=== PATIENT | male | born 1945 | race Caucasian/White ===

== ENCOUNTER 2023-03-12 12:39 | Emergency (ER) | payer MEDICARE ==
--- NOTE | 2023-03-12 13:00 | ED ---
General Adult HPI - General Source: patient, family, RN notes reviewed Mode of arrival: ambulatory Limitations: no limitations <Mark Stevens - Last Filed: 03/12/23 12:59> <Nicko Munroe - Last Filed: 03/12/23 14:24> - General Stated complaint: left lower leg pain Time Seen by Provider: 03/12/23 12:59 - History of Present Illness Initial comments: 77-year-old male presents emergency Department from outpatient ultrasound for positive DVT. Patient has a history of DVTs patient has pain to left leg pain over the last few days. Ultrasound showing mid femoral to popliteal DVT. Patient denies chest pain or shortness of breath patient was sent over by radiation oncologist. (Mark Stevens) This is a 77-year-old male who presents emergency department stating that recently he has been treated for esophageal cancer and he has been noting that his left leg is getting swollen he told his oncologist today and they sent him in for an ultrasound which turned out to be positive for DVT. He was sent immediately to the emergency department patient denies any shortness of breath or chest pain. Patient states she's had a clot in the other leg in the past but is no longer in any thinners. (Nicko Munroe) - Related Data Previous Rx's Medication Instructions Recorded Enoxaparin [Lovenox] 100 mg SQ Q12H 30 Days each 03/12/23 Allergies Allergy/AdvReac Type Severity Reaction Status Date / Time No Known Allergies Allergy Verified 03/12/23 13:01 Review of Systems ROS Other: All systems not noted in ROS Statement are negative. <Mark Stevens - Last Filed: 03/12/23 12:59> ROS Other: All systems not noted in ROS Statement are negative. <Nicko Munroe - Last Filed: 03/12/23 14:24> ROS Statement: Those systems with pertinent positive or pertinent negative responses have been documented in the HPI. General Exam General appearance: alert, in no apparent distress <Mark Stevens - Last Filed: 03/12/23 12:59> <Nicko Munroe - Last Filed: 03/12/23 14:24> - General Exam Comments Initial Comments: Visual Physical Exam Vital signs reviewed General: Well-appearing, nontoxic, no acute distress. Head: Normocephalic, atraumatic Eyes: PERRLA, EOMI ENT: Airway patent Chest: Nonlabored breathing Skin: No visual rash, normal skin tone Neuro: Alert and oriented 3 Musculoskeletal: No gross abnormalities (Mark Stevens) GENERAL: Patient is well-developed and well-nourished. Patient is nontoxic and well- hydrated and is in no acute distress. ENT: Neck is soft and supple. No significant lymphadenopathy is noted. Oropharynx is clear. Moist mucous membranes. Neck has full range of motion without eliciting any pain. EYES: The sclera were anicteric and conjunctiva were pink and moist. Extraocular movements were intact and pupils were equal round and reactive to light. Eyelids were unremarkable. SKIN: Skin is clear with no lesions or rashes and otherwise unremarkable. NEUROLOGIC: Patient is alert and oriented x3. Cranial nerves II through XII are grossly intact. Motor and sensory are also intact. Normal speech, volume and content. Symmetrical smile. MUSCULOSKELETAL: Normal extremities with adequate strength and full range of motion. Left leg is swollen and Somewhat tender LYMPHATICS: No significant lymphadenopathy is noted PSYCHIATRIC: Normal psychiatric evaluation. (Nicko Munroe) Course Vital Signs 03/12/23 12:55 Temperature 97 F L Pulse Rate 90 Respiratory 18 Rate Blood Pressure 122/72 O2 Sat by Pulse 92 L Oximetry Medical Decision Making <Mark Stevens - Last Filed: 03/12/23 12:59> <Nicko Munroe - Last Filed: 03/12/23 14:24> - Medical Decision Making I completed the quick note portion of this chart signed Mark Stevens PA-C (Mark Stevens) Was pt. sent in by a medical professional or institution ([facility], [employer] TRA[employer]ER, urgent care, hospital, or usp...) When possible be specific @ -Patient was sent in by his oncologist Did you speak to anyone other than the patient for history (EMS, parent, family, police, friend...)? What history was obtained from this source @ -No Did you review nursing and triage notes (agree or disagree)? Why? @ -I reviewed and agree with nursing and triage notes Were old charts reviewed (outside hosp., previous admission, EMS record, old EKG, old radiological studies, urgent care reports/EKG's, usp records)? Report findings @ -No old charts were reviewed Differential Diagnosis (chest pain, altered mental status, abdominal pain women, abdominal pain men, vaginal bleeding, weakness, fever, dyspnea, syncope, headache, dizziness, GI bleed, back pain, seizure, CVA, palpatations, mental health, musculoskeletal)? @ -DVT EKG interpreted by me (3pts min.). @ -As above X-rays interpreted by me (1pt min.). @ -None done CT interpreted by me (1pt min.). @ -None done U/S interpreted by me (1pt. min.). @ -None done What testing was considered but not performed or refused? (CT, X-rays, U/S, labs)? Why? @ -None What meds were considered but not given or refused? Why? @ -None Did you discuss the management of the patient with other professionals (professionals i.e. , PA, SALESFORCE TRAINER, lab, RT, psych nurse, long term care social worker, television cameraman, teacher, security officer, pillowcase turner)? Give summary @ -I spoke with the oncologist and he was okay with giving the patient eliquis through the J-[facility] Was smoking cessation discussed for >3mins.? @ -No Was critical care preformed (if so, how long)? @ -No Were there social determinants of health that impacted care today? How? (Homelessness, low income, unemployed, alcoholism, drug addiction, transportation, low edu. Level, literacy, decrease access to med. care, fdc, rehab)? @ -No Was there de-escalation of care discussed even if they declined (Discuss DNR or withdrawal of care, Hospice)? DNR status @ -No What co-morbidities impacted this encounter? (DM, HTN, Smoking, COPD, CAD, Cancer, CVA, ARF, Chemo, Hep., AIDS, mental health diagnosis, sleep apnea, morbid obesity)? @ -None Was patient admitted / discharged? Hospital course, mention meds given and route, prescriptions, significant lab abnormalities, going to OR and other pertinent info. @ -Patient was given a first dose of eliquis in the emergency department. After I spoke with oncology and they agreed that eliquis some right medication to be given to the J-tube a call back and subsequently wanted Lovenox subcu 1 mg/kg. Undiagnosed new problem with uncertain prognosis? @ -No Drug Therapy requiring intensive monitoring for toxicity (Heparin, Nitro, Insulin, Cardizem)? @ -No Were any procedures done? @ -No Diagnosis/symptom? @ -DVT left leg Acute, or Chronic, or Acute on Chronic? @ -Acute Uncomplicated (without systemic symptoms) or Complicated (systemic symptoms)? @ -Complicated Side effects of treatment? @ -No Exacerbation, Progression, or Severe Exacerbation? @ -No Poses a threat to life or bodily function? How? (Chest pain, [place], [place], pneumonia, PE, COPD, DKA, ARF, appy, cholecystitis, CVA, Diverticulitis, Homicidal, Suicidal, threat to staff... and all critical care pts) @ -yes this could lead to pulmonary embolism and (Nicko Munroe) Disposition <Mark Stevens - Last Filed: 03/12/23 12:59> Is patient prescribed a controlled substance at d/c from ED?: No Time of Disposition: 13:53 <Nicko Munroe - Last Filed: 03/12/23 14:24> Clinical Impression: DVT (deep venous thrombosis) Disposition: HOME SELF-CARE Condition: Good Instructions (If sedation given, give patient instructions): Deep Vein Thrombosis (ED), Enoxaparin (By injection) Prescriptions: Enoxaparin [Lovenox] 100 mg SQ Q12H 30 Days each Referrals: Nicko Aguillon DO [Primary Care Provider] - 1-2 days
[2023-03-12 13:07] VITALS: BP 122/72; PULSE 90; RESP 18; TEMP 97
[2023-03-12] MEDS ORDERED: ENOXAPARIN 100 MG/ML SYRINGE SQ STA (14:14)
== END 2023-03-12 14:30 | disposition home or self-care (01) ==
LOC: EC 12:39
DX: I82.402 Acute embolism and thrombosis of unspecified deep veins of left lower extremity (principal)
CPT/HCPCS: 99282 ×2; 96372 ×2; J1650

== ENCOUNTER → 2023-03-12 | Outpatient (CLI) | payer MEDICARE ==
--- NOTE | 2023-03-12 12:46 | US ---
EXAMINATION TYPE: US venous doppler duplex LE LT DATE OF EXAM: 03/12/2023 12:21 PM COMPARISON: NONE CLINICAL INDICATION: Male, 77 years old with history of M79.662 PAIN IN LEFT LOWER LEG; Per patient, hx DVT in right leg x >10 years ago. Not on blood thinners. Pain. Current cancer patient with curr ent radiation and chemotherapy treatments. SIDE PERFORMED: Left TECHNIQUE: The lower extremity deep venous system is examined utilizing real time linear array sonog daniel with graded compression, doppler sonography and color-flow sonography. VESSELS IMAGED: Common Femoral Vein Deep Femoral Vein Greater Saphenous Vein * Femoral Vein Popliteal Vein Small Saphenous Vein * Proximal Calf Veins (* superficial vessels) Left Leg: Positive for DVT from mid Femoral vein to proximal calf veins. Positive for clot in PTV's . Incidental finding: Right CFV- Positive for DVT IMPRESSION: 1. Deep venous thrombosis left lower extremity of the calf veins to the mid femoral vein 2. Incidental note made of DVT within the right common femoral vein. Consider complete evaluation of the right lower extremity venous system for further evaluation of the extent of the deep venous throm bosis.
== END | disposition home or self-care (01) ==
LOC: RADUSWWP 11:54
PROVIDERS: ATTEND Radiology Radiation Oncology
DX: I82.492 Acute embolism and thrombosis of other specified deep vein of left lower extremity (principal); C77.1 Secondary and unspecified malignant neoplasm of intrathoracic lymph nodes; C15.5 Malignant neoplasm of lower third of esophagus; R22.42 Localized swelling, mass and lump, left lower limb

== ENCOUNTER → 2023-06-14 | Outpatient (CLI) | payer MEDICARE, OTHER ==
--- NOTE | 2023-06-15 15:51 | CA ---
Transthoracic Echo Report Name: Rajiv Hong Age: 77 Gender: M : 1945 Exam Date: 06/14/2023 15:03 Exam Location: [facility] Ht (in): 68 Wt (lb): 230 Ordering Physician: Marc Villegas MD Attending/Referring Phys: Power Plant Operator Apprentice Nell Vaz RDCS Procedure CPT: Indications: Z01.818 Chemo Cardiac Hx: IVSs 1.1 Technical Quality: Contrast 1: Total Dose (mL): Contrast 2: Total Dose (mL): MEASUREMENTS (Male / Female) Normal Values FINDINGS Left Ventricle Left ventricular ejection fraction is estimated at 50-55%. Left ventricular cavity size normal. No obvious regional wall motion abnormalities. Right Ventricle Normal right ventricular size.unable to estimate the right ventricular systolic pressure. Right Atrium Normal right atrial size. Left Atrium Normal left atrial size. Mitral Valve Trace to mild mitral regurgitation. Aortic Valve Mild aortic regurgitation. [id number] aortic stenosis with a peak gradient of 37 mmHg and a mean gradient of 17.3 mmHg. Tricuspid Valve Trace to mild tricuspid regurgitation. Pulmonic Valve Trace to mild pulmonic regurgitation. Pericardium No pericardial effusion. Aorta Normal size aortic root. CONCLUSIONS Normal LV systolic function Aortic sclerosis with [id number] aortic stenosis Previewed by: Dr. Frank Jeffers MD (Electronically Signed) Final Date: 15 June 2023 15:50
== END | disposition home or self-care (01) ==
LOC: RADECHMAIN 14:54
PROVIDERS: ATTEND Internal Medicine Hematology & Oncology
DX: Z01.818 Encounter for other preprocedural examination (principal); I35.0 Nonrheumatic aortic (valve) stenosis; I35.8 Other nonrheumatic aortic valve disorders; C15.5 Malignant neoplasm of lower third of esophagus; E78.5 Hyperlipidemia, unspecified; I10 Essential (primary) hypertension; Z71.3 Dietary counseling and surveillance
CPT/HCPCS: 93306

== ENCOUNTER → 2023-09-22 | Outpatient (CLI) | payer MEDICARE, OTHER ==
--- NOTE | 2023-09-22 17:50 | PE ---
EXAMINATION TYPE: PET CT fusion skull to thigh DATE OF EXAM: 09/22/2023 COMPARISON: No recent pertinent CT at this location Prior PET/CT: 06/13/2023 HISTORY: History of cancer TECHNIQUE: Following the intravenous administration of 11.75 mCi of F-18 FDG, whole body images are performed from the skull base to the midthigh. Images are reviewed on the computer in the coronal, a xial, and sagittal planes. Reconstructed rotating images are created on independent workstation and reviewed on the computer. A localization and attenuation correction CT is performed in conjunction with the PET scan. DLP: 916.02 mGycm SCAN: Subsequent Blood glucose: 95 mg/dL Average Mediastinum SUV: 2.03 Average Liver SUV: 2.78 FINDINGS: NECK: No abnormal uptake THORAX: There is increased uptake within the posterior distal esophagus above the gastroesophageal ju nction, example image 117, SUV 8.76. ABDOMEN: No abnormal uptake PELVIS: No abnormal uptake within the intraperitoneal region. There is some superficial increased upt nicki scattered within the subcutaneous tissues anteriorly right greater than left infection and metast asis should be considered. Example image 216, SUV 8.69 OSSEOUS STRUCTURES: No abnormal uptake LOCALIZATION CT: Small bilateral pleural effusions are present. There may be a small hiatal hernia pr esent. Suspicious uptake within the hiatal hernia however is not evident. COMPARISON: Uptake remains present within the esophagus from the prior examination. No significant in crease or decrease in SUV value from comparison, prior 8.39. Volume however appears somewhat larger o n the current examination. IMPRESSION: 1. Increasing volume of radiotracer within the distal esophagus above a hiatal hernia. SUV is similar . Recurrence however is suspected. Direct visualization recommended. 2. Distant abnormal uptake to suggest metastasis not identified. 3. Subcutaneous anterior lower pelvic uptake increasing from comparison. Correlate for underlying inf ection. Metastasis is not excluded.
== END | disposition home or self-care (01) ==
LOC: RADPETMAIN 09:50
PROVIDERS: ATTEND Radiology Radiation Oncology
DX: C77.1 Secondary and unspecified malignant neoplasm of intrathoracic lymph nodes (principal); C16.0 Malignant neoplasm of cardia; K44.9 Diaphragmatic hernia without obstruction or gangrene
CPT/HCPCS: 78815; A9552

== ENCOUNTER 2023-10-16 10:18 | Day surgery (SDC) | payer MEDICARE, OTHER ==
[2023-10-15 10:03] VITALS: BMI 34.9
[2023-10-16 10:33] VITALS: TEMP 97.6
[2023-10-16] MEDS: IV FLUID CONTINUATION 1,000 ML IV ONE (10:35)
[2023-10-16] MEDS: LACTATED RINGERS 1,000 ML BAG IV STA (10:43)
[2023-10-16] MEDS ORDERED: PROPOFOL 10 MG/ML 20 ML VIAL IV ONE (11:21)
[2023-10-16] MEDS ORDERED: LIDOCAINE 1% INJ 10MG/ML (20 ML MDV) ONE (11:21)
[2023-10-16 11:40] VITALS: BP 136/72; PULSE 77; RESP 16
--- NOTE | 2023-10-16 12:12 | P.PCN ---
Date of Procedure: 10/16/23 Procedure(s) Performed: BRIEF HISTORY: Patient is a 77-year-old, pleasant, white male scheduled for an upper endoscopy as a part of follow-up of esophageal cancer diagnosed in January 2023. He s/p chemo and radiation and recent PET scan done 3 weeks ago revealed increased uptake in the distal esophagus suspicious for recurrence. He has been complaining of intermittent dysphagia to solid. PROCEDURE PERFORMED: Esophagogastroduodenoscopy with biopsy. PREOPERATIVE DIAGNOSIS: Follow-up esophageal cancer diagnosed in January 2023. IV sedation per anesthesia. PROCEDURE: After informed consent was obtained, the patient was brought into the endoscopy unit. IV sedation was administered by Anesthesia under continuous monitoring. Initially the Olympus GIF-140 video endoscope was inserted into the mouth. Esophagus intubated without any difficulty. It was gradually advanced into the distal esophagus where there was a distal esophageal ulcerated necrotic appearing mass identified extending from the 7 to 40 cm from the incisors. I was unable to advance the scope as it was old esophageal stricture identified at the GE junction. The scope was removed and a pediatric upper endoscope was then introduced into the mouth and esophagus intubated without any difficulty and gentle manipulation I was able to advance the scope into the stomach and duodenum and carefully examined. The bulb and the second part of the duodenum appeared normal. The scope at this time was withdrawn to the stomach, adequately insufflated with air, and upon careful examination, mucosa of the antrum, body, cardia and the fundus appeared normal. The scope was then withdrawn into the esophagus. Hiatal hernia noted. The GE junction was located at 40 cm from the incisors. There was a distal esophageal ulcerated necrotic appearing mass extending from 37 to 40 cm from the incisors and multiple biopsies were done from this area. The rest of the esophagus appeared normal. the patient tolerated the procedure well. IMPRESSION: 1. Distal esophageal ulcerated necrotic appearing mass extending from 37 to 40 cm from the incisors s/p multiple biopsies. 2. Early distal esophageal stricture 3. Small hiatal. RECOMMENDATIONS: The findings of this examination were discussed with the patient as well as his family. He was advised to follow-up with the biopsy results. Follow-up with Dr. Villegas as scheduled.
== END 2023-10-16 12:10 | disposition home or self-care (01) ==
LOC: ORWHC2ENDO 10:18
PROVIDERS: ATTEND Internal Medicine Gastroenterology
DX: D00.1 Carcinoma in situ of esophagus (principal); K22.89 Other specified disease of esophagus; K22.2 Esophageal obstruction; Z85.01 Personal history of malignant neoplasm of esophagus; Z92.21 Personal history of antineoplastic chemotherapy
CPT/HCPCS: 88305; 88342; 88341; 43239; J2001; J2704

== ENCOUNTER 2023-10-24 11:49 | Inpatient (IN) | payer MEDICARE, OTHER ==
--- NOTE | 2023-10-24 12:34 | ED ---
Weakness HPI - General Chief complaint: Weakness Stated complaint: Weakness Time Seen by Provider: 10/24/23 12:27 Source: patient, EMS Mode of arrival: EMS Limitations: physical limitation - History of Present Illness Initial comments: This patient is a 77-year-old man here to have evaluation for generalized weakness and confusion that has been going on for approximately 2 days, getting progressively worse. History is from the patient and his . The patient is currently taking radiation therapy for esophageal cancer. They have not noted fever. No cough or dyspnea. There has been no change in urination or bowel movements. The weakness is not focal. MD Complaint: generalized weakness, lack of energy, difficulty walking Onset/Timin -: days(s) Location: generalized Severity: moderate Severity scale (1-10): 0 Consistency: constant Improves with: none Worsens with: none Context: other (radiation therapy) Associated Symptoms: confusion - Related Data Home Medications Medication Instructions Recorded Confirmed Albuterol Sulfate [Ventolin HFA] 2 puff INHALATION RT-QID PRN 07/01/23 10/24/23 Ezetimibe [Zetia] 10 mg PO DAILY 07/01/23 10/24/23 Fluticasone Propion/Salmeterol 1 puff INHALATION RT-DAILY 07/01/23 10/24/23 [Wixela 100-50 Inhub] Omeprazole 20 mg PO DAILY 07/01/23 10/24/23 Valsartan/Hydrochlorothiazide 1 tab PO DAILY 07/01/23 10/24/23 [Valsartan-Hctz 160-12.5 mg Tab] amLODIPine [Norvasc] 5 mg PO DAILY 07/01/23 10/24/23 Previous Rx's Medication Instructions Recorded dexAMETHasone [Decadron] 4 mg PO Q6HR 7 Days #28 tablet 10/26/23 Allergies Allergy/AdvReac Type Severity Reaction Status Date / Time No Known Allergies Allergy Verified 10/24/23 13:57 Review of Systems ROS Statement: Those systems with pertinent positive or pertinent negative responses have been documented in the HPI. ROS Other: All systems not noted in ROS Statement are negative. Constitutional: Reports: weakness. Denies: fever, chills Eyes: Denies: vision change ENT: Denies: throat pain Respiratory: Denies: cough, dyspnea, hemoptysis Cardiovascular: Denies: chest pain, edema, syncope Gastrointestinal: Denies: abdominal pain, nausea, vomiting, diarrhea Genitourinary: Denies: dysuria, hematuria Musculoskeletal: Denies: back pain Skin: Denies: rash Neurological: Denies: headache, weakness, numbness Past Medical History Past Medical History: Asthma, Cancer, Deep Vein Thrombosis (DVT), GERD/Reflux, Hyperlipidemia, Hypertension Additional Past Medical History / Comment(s): esophageal Ca, CHEMO LAST treatment 10/15/23 every 4-6 weeks, radiation finished History of Any Multi-Drug Resistant Organisms: None Reported Past Surgical History: Hernia Repair, Joint Replacement, Orthopedic Surgery Additional Past Surgical History / Comment(s): partial knee replacement egd, feeding tube -REMOVED Past Anesthesia/Blood Transfusion Reactions: No Reported Reaction Additional Past Anesthesia/Blood Transfusion Reaction / Comment(s): no blood transfusion Past Psychological History: No Psychological Hx Reported Smoking Status: Former smoker Past Alcohol Use History: None Reported Past Drug Use History: None Reported - Past Family History Mother Family Medical History: No Reported History General Exam Limitations: physical limitation General appearance: alert, in no apparent distress Head exam: Present: atraumatic, normocephalic Eye exam: Present: normal appearance. Absent: scleral icterus, conjunctival injection ENT exam: Present: mucous membranes dry Neck exam: Present: normal inspection, full ROM. Absent: meningismus Respiratory exam: Present: rales. Absent: respiratory distress, wheezes, rhonchi, stridor, accessory muscle use Cardiovascular Exam: Present: regular rate, normal rhythm, systolic murmur. Absent: diastolic murmur, rubs, gallop GI/Abdominal exam: Present: soft. Absent: distended, tenderness, guarding, rebound, rigid, mass Extremities exam: Present: normal inspection, normal capillary refill. Absent: pedal edema, calf tenderness Back exam: Present: normal inspection. Absent: CVA tenderness (R), CVA tenderness (L) Neurological exam: Present: alert Skin exam: Present: warm, dry, intact, normal color. Absent: rash Course Vital Signs 10/24/23 10/24/23 10/24/23 11:53 13:23 14:25 Temperature 99.8 F H Pulse Rate 85 80 81 Respiratory 16 18 18 Rate Blood Pressure 158/72 173/84 172/84 O2 Sat by Pulse 97 95 96 Oximetry 10/24/23 10/24/2324 17:25 18:48 19:55 Temperature Pulse Rate 86 80 83 Respiratory 18 18 18 Rate Blood Pressure 172/80 155/78 164/80 O2 Sat by Pulse 95 95 95 Oximetry EKG Findings - EKG Results: EKG: interpreted by ERMD, sinus rhythm (86 bpm) - Blocks, [place], Hypertrophy, ST Abn: AV and intraventricular conduction: 1 AV block, right bundle branch block (fixed/intermittent, complete/incomplete) (incomplete), left anterior fascicular block Medical Decision Making - Medical Decision Making The patient had chest x-ray which I interpreted as showing some mild diffuse haziness, consider atypical pneumonia versus congestive heart failure. Procalcitonin is added to the labs. The patient had CT of the brain that I interpreted that showed suspected brain metastases with edema. Was pt. sent in by a medical professional or institution (, PA, CYLINDER DIE MACHINE OPERATOR, urgent care, hospital, or fdc...) When possible be specific @ -[No] Did you speak to anyone other than the patient for history (EMS, parent, family, police, friend...)? What history was obtained from this source @ -[The patient's contributed to history Did you review nursing and triage notes (agree or disagree)? Why? @ -[I reviewed and agree with nursing and triage notes] Were old charts reviewed (outside hosp., previous admission, EMS record, old EKG, old radiological studies, urgent care reports/EKG's, fdc records)? Report findings @ -[No old charts were reviewed] Differential Diagnosis (chest pain, altered mental status, abdominal pain women, abdominal pain men, vaginal bleeding, weakness, fever, dyspnea, syncope, headache, dizziness, GI bleed, back pain, seizure, CVA, palpatations, mental health, musculoskeletal)? @ -[Differential Weakness: Hypoglycemia, shock, sepsis, hyponatremia, anemia, infection, NE, ETOH, adverse medicine reaction, overdose, stroke, this is not meant to be an all-inclusive list. EKG interpreted by me (3pts min.). @ -[I interpreted as above] X-rays interpreted by me (1pt min.). @ -[I interpreted as above CT interpreted by me (1pt min.). @ -[I interpreted as above U/S interpreted by me (1pt. min.). @ -[None done] What testing was considered but not performed or refused? (CT, X-rays, U/S, labs)? Why? @ -[None] What meds were considered but not given or refused? Why? @ -[None] Did you discuss the management of the patient with other professionals (professionals i.e. , PA, CYLINDER DIE MACHINE OPERATOR, lab, RT, psych nurse, social security specialist, dope maintenance worker, teacher, coastal/harbor defense officer, family service caseworker)? Give summary @ -[Case discussed with admitting physician and treatment recommendations incorporated Was smoking cessation discussed for >3mins.? @ -[No] Was critical care preformed (if so, how long)? @ -[No] Were there social determinants of health that impacted care today? How? (Homelessness, low income, unemployed, alcoholism, drug addiction, transportation, low edu. Level, literacy, decrease access to med. care, long term, rehab)? @ -[No] Was there de-escalation of care discussed even if they declined (Discuss DNR or withdrawal of care, Hospice)? DNR status @ -[No] What co-morbidities impacted this encounter? (DM, HTN, Smoking, COPD, CAD, Cancer, CVA, ARF, Chemo, Hep., AIDS, mental health diagnosis, sleep apnea, morbid obesity)? @ -[Underlying cancer Was patient admitted / discharged? Hospital course, mention meds given and route, prescriptions, significant lab abnormalities, going to OR and other pe rtinent info. @ -[Patient is a 77-year-old man here with generalized weakness. As part of the workup, the patient had CT scan that shows suspected brain metastases. There is some edema and the patient was started on dexamethasone. Patient will be admitted and have oncology consultation. Undiagnosed new problem with uncertain prognosis? @ -[No] Drug Therapy requiring intensive monitoring for toxicity (Heparin, Nitro, Insulin, Cardizem)? @ -[No] Were any procedures done? @ -[No] Diagnosis/symptom? @ -Acute generalized weakness Suspected brain metastases Acute, or Chronic, or Acute on Chronic? @ -[Acute Uncomplicated (without systemic symptoms) or Complicated (systemic symptoms)? @ -[Complicated by generalized weakness Side effects of treatment? @ -[No] Exacerbation, Progression, or Severe Exacerbation? @ -[No] Poses a threat to life or bodily function? How? (Chest pain, USA, NE, pneumonia, PE, COPD, DKA, ARF, appy, cholecystitis, CVA, Diverticulitis, Homicidal, Suicidal, threat to staff... and all critical care pts) @ -[Yes - Lab Data Result diagrams: 10/26/23 05:01 10/26/23 05:01 Lab Results 10/24/23 10/24/23 10/24/23 Range/Units 12:53 12:53 12:53 WBC 8.7 (3.8-10.6) k/uL RBC 4.10 L (4.30-5.90) m/uL Hgb 11.5 L (13.0-17.5) gm/dL Hct 35.6 L (39.0-53.0) % MCV 86.9 (80.0-100.0) fL MCH 28.1 (25.0-35.0) pg MCHC 32.4 (31.0-37.0) g/dL RDW 14.3 (11.5-15.5) % Plt Count 251 (150-450) k/uL MPV 7.4 Neutrophils % 82 % Lymphocytes % 8 % Monocytes % 7 % Eosinophils % 1 % Basophils % 1 % Neutrophils # 7.1 (1.3-7.7) k/uL Lymphocytes # 0.7 L (1.0-4.8) k/uL Monocytes # 0.6 (0-1.0) k/uL Eosinophils # 0.1 (0-0.7) k/uL Basophils # 0.1 (0-0.2) k/uL PT 10.9 (10.0-12.5) sec INR 1.0 (<1.2) APTT 25.4 (22.0-30.0) sec Sodium 131 L (137-145) mmol/L Potassium 4.3 (3.5-5.1) mmol/L Chloride 100 (98-107) mmol/L Carbon Dioxide 25 (22-30) mmol/L Anion Gap 6 mmol/L BUN 28 H (9-20) mg/dL Creatinine 0.66 (0.66-1.25) mg/dL Est GFR (CKD-EPI)AfAm >90 (>60 ml/min/1.73 sqM) Est GFR (CKD-EPI)NonAf >90 (>60 ml/min/1.73 sqM) Glucose 103 H (74-99) mg/dL Plasma Lactic Acid Cabrera (0.7-2.0) mmol/L Calcium 8.7 (8.4-10.2) mg/dL Total Bilirubin 2.2 H (0.2-1.3) mg/dL AST 25 (17-59) U/L ALT 18 (4-49) U/L Alkaline Phosphatase 91 (38-126) U/L Troponin I (0.000-0.034) ng/mL Total Protein 6.9 (6.3-8.2) g/dL Albumin 3.8 (3.5-5.0) g/dL Procalcitonin (0.02-0.09) ng/mL Urine Color Urine Appearance (Clear) Urine pH (5.0-8.0) Ur Specific [place] (1.001-1.035) Urine Protein (Negative) Urine Glucose (UA) (Negative) Urine Ketones (Negative) Urine Blood (Negative) Urine Nitrite (Negative) Urine Bilirubin (Negative) Urine Urobilinogen (<2.0) mg/dL Ur Leukocyte Esterase (Negative) 10/24/23 10/24/23 10/24/23 Range/Units 12:53 12:53 12:53 WBC (3.8-10.6) k/uL RBC (4.30-5.90) m/uL Hgb (13.0-17.5) gm/dL Hct (39.0-53.0) % MCV (80.0-100.0) fL MCH (25.0-35.0) pg MCHC (31.0-37.0) g/dL RDW (11.5-15.5) % Plt Count (150-450) k/uL MPV Neutrophils % % Lymphocytes % % Monocytes % % Eosinophils % % Basophils % % Neutrophils # (1.3-7.7) k/uL Lymphocytes # (1.0-4.8) k/uL Monocytes # (0-1.0) k/uL Eosinophils # (0-0.7) k/uL Basophils # (0-0.2) k/uL PT (10.0-12.5) sec INR (<1.2) APTT (22.0-30.0) sec Sodium (137-145) mmol/L Potassium (3.5-5.1) mmol/L Chloride (98-107) mmol/L Carbon Dioxide (22-30) mmol/L Anion Gap mmol/L BUN (9-20) mg/dL Creatinine (0.66-1.25) mg/dL Est GFR (CKD-EPI)AfAm (>60 ml/min/1.73 sqM) Est GFR (CKD-EPI)NonAf (>60 ml/min/1.73 sqM) Glucose (74-99) mg/dL Plasma Lactic Acid [place] 0.8 (0.7-2.0) mmol/L Calcium (8.4-10.2) mg/dL Total Bilirubin (0.2-1.3) mg/dL AST (17-59) U/L ALT (4-49) U/L Alkaline Phosphatase (38-126) U/L Troponin I <0.012 (0.000-0.034) ng/mL Total Protein (6.3-8.2) g/dL Albumin (3.5-5.0) g/dL Procalcitonin 0.08 (0.02-0.09) ng/mL Urine Color Urine Appearance (Clear) Urine pH (5.0-8.0) Ur Specific [place] (1.001-1.035) Urine Protein (Negative) Urine Glucose (UA) (Negative) Urine Ketones (Negative) Urine Blood (Negative) Urine Nitrite (Negative) Urine Bilirubin (Negative) Urine Urobilinogen (<2.0) mg/dL Ur Leukocyte Esterase (Negative) 10/24/23 Range/Units 14:06 WBC (3.8-10.6) k/uL RBC (4.30-5.90) m/uL Hgb (13.0-17.5) gm/dL Hct (39.0-53.0) % MCV (80.0-100.0) fL MCH (25.0-35.0) pg MCHC (31.0-37.0) g/dL RDW (11.5-15.5) % Plt Count (150-450) k/uL MPV Neutrophils % % Lymphocytes % % Monocytes % % Eosinophils % % Basophils % % Neutrophils # (1.3-7.7) k/uL Lymphocytes # (1.0-4.8) k/uL Monocytes # (0-1.0) k/uL Eosinophils # (0-0.7) k/uL Basophils # (0-0.2) k/uL PT (10.0-12.5) sec INR (<1.2) APTT (22.0-30.0) sec Sodium (137-145) mmol/L Potassium (3.5-5.1) mmol/L Chloride (98-107) mmol/L Carbon Dioxide (22-30) mmol/L Anion Gap mmol/L BUN (9-20) mg/dL Creatinine (0.66-1.25) mg/dL Est GFR (CKD-EPI)AfAm (>60 ml/min/1.73 sqM) Est GFR (CKD-EPI)NonAf (>60 ml/min/1.73 sqM) Glucose (74-99) mg/dL Plasma Lactic Acid [place] (0.7-2.0) mmol/L Calcium (8.4-10.2) mg/dL Total Bilirubin (0.2-1.3) mg/dL AST (17-59) U/L ALT (4-49) U/L Alkaline Phosphatase (38-126) U/L Troponin I (0.000-0.034) ng/mL Total Protein (6.3-8.2) g/dL Albumin (3.5-5.0) g/dL Procalcitonin (0.02-0.09) ng/mL Urine Color Light Yellow Urine Appearance Clear (Clear) Urine pH 6.5 (5.0-8.0) Ur Specific [place] 1.021 (1.001-1.035) Urine Protein Trace H (Negative) Urine Glucose (UA) Negative (Negative) Urine Ketones 1+ H (Negative) Urine Blood Negative (Negative) Urine Nitrite Negative (Negative) Urine Bilirubin Negative (Negative) Urine Urobilinogen <2.0 (<2.0) mg/dL Ur Leukocyte Esterase Negative (Negative) Disposition Clinical Impression: Metastatic cancer to brain, Weakness Disposition: ADMITTED IP TO THIS [facility] Condition: Good Is patient prescribed a controlled substance at d/c from ED?: No
[2023-10-24 13:12] LABS: Basophils # (A) 0.1 k/uL (0-0.2); Basophils % (A) 1 %; Eosinophils # (A) 0.1 k/uL (0-0.7); Eosinophils % (A) 1 %; HCT 35.6 % (39.0-53.0); HGB 11.5 gm/dL (13.0-17.5); Lymphocytes # (A) 0.7 k/uL (1.0-4.8); Lymphocytes % (A) 8 %; MCH 28.1 pg (25.0-35.0); MCHC 32.4 g/dL (31.0-37.0); MCV 86.9 fL (80.0-100.0); Mean Platelet Volume 7.4; Monocytes # (A) 0.6 k/uL (0-1.0); Monocytes % (A) 7 %; Neutrophils # (A) 7.1 k/uL (1.3-7.7); Neutrophils % (A) 82 %; Platelet Count 251 k/uL (150-450); RDW 14.3 % (11.5-15.5); WBC 8.7 k/uL (3.8-10.6)
[2023-10-24 13:19] LABS: Partial Thromboplastin Time 25.4 sec (22.0-30.0); Prothrombin Time 10.9 sec (10.0-12.5)
[2023-10-24] MEDS: SODIUM CHLORIDE 0.9% 1,000 ML IV SCH ×2 (13:31→17:38)
[2023-10-24 13:32] LABS: ALT 18 U/L (4-49); AST 25 U/L (17-59); African American GFR (CKD) >90 (>60 ml/min/1.73 sqM); Albumin 3.8 g/dL (3.5-5.0); Alkaline Phosphatase 91 U/L (38-126); Anion Gap 6 mmol/L; Blood Urea Nitrogen 28 mg/dL (9-20); Calcium 8.7 mg/dL (8.4-10.2); Carbon Dioxide 25 mmol/L (22-30); Chloride 100 mmol/L (98-107); Glucose 103 mg/dL (74-99); Non-African American GFR(CKD) >90 (>60 ml/min/1.73 sqM); Potassium 4.3 mmol/L (3.5-5.1); Sodium 131 mmol/L (137-145); Total Bilirubin 2.2 mg/dL (0.2-1.3); Total Protein 6.9 g/dL (6.3-8.2)
[2023-10-24] MEDS: SODIUM CHLORIDE 0.9% 500 ML 500 ML IV SCH (13:32)
--- NOTE | 2023-10-24 14:21 | CT ---
EXAMINATION TYPE: CT brain wo con DATE OF EXAM: 10/24/2023 COMPARISON: None HISTORY: 77-year-old male with confusion AMS. HX OF CANCER. TECHNIQUE: Examination was done in axial plane without intravenous contrast. Coronal and sagittal r econstructions performed. CT DLP: 1168.4 mGycm Automated exposure control for dose reduction was used. FINDINGS: Prominent CSF space along the anterior floor of the left middle cranial fossa measuring 4.7 x 2.9 x 2 .8 cm. There is an area of vasogenic edema along the right parietal region and right parieto-occipita l junction with suggestion of a possible underlying rounded lesion measuring 2.3 cm. There is associa caitie sulcal effacement but no midline shift or herniation. There is mass effect resulting in asymmetri c effacement of the atrium of the right lateral ventricle. No evidence for acute intracranial hemorrhage, acute ischemic change, or extra-axial fluid collection . Mild fullness of the bilateral ventricles likely due to central atrophy. No effacement of basal subar achnoid cisterns. [place]-white matter differentiation is maintained. There is moderate patchy white matter hypodensities in both hemispheres. Metastatic calcifications in the bilateral carotid siphons. Scleral banding left globe. Rightward nasal septal deviation. Mild mucosal thickening ethmoid air archana ls. Mastoid air cells well pneumatized. IMPRESSION: 1. Findings highly suggestive of a 2.3 cm parenchymal lesion (metastatic disease) involving the right parietal lobe with surrounding vasogenic edema throughout the parietal lobe and back to the parieto- occipital junction. Mass effect causes effacement of the atrium of the right lateral ventricle. No mi dline shift or herniation. 2. A 4.7 cm arachnoid cyst incidentally noted along the anterior floor of the left middle cranial fos sa.
[2023-10-24 15:00] LABS: Appearance,Urine Clear (Clear); Bilirubin,Urine Negative (Negative); Blood,Urine Negative (Negative); Color,Urine Light Yellow; Glucose,Urine (UA) Negative (Negative); Ketones,Urine 1+ (Negative); Leukocyte Esterase,Urine Negative (Negative); Nitrite,Urine Negative (Negative); PH, Urine 6.5 (5.0-8.0); Protein,Urine Trace (Negative); Specific Gravity,Urine 1.021 (1.001-1.035); Urobilinogen,Urine <2.0 mg/dL (<2.0)
--- NOTE | 2023-10-24 16:02 | XR ---
EXAMINATION TYPE: XR chest 2V DATE OF EXAM: 10/24/2023 COMPARISON: None HISTORY: 77-year-old male with fever, history of esophageal cancer TECHNIQUE: AP and lateral views FINDINGS: The heart is mildly enlarged. Diffuse interstitial density. No sizable pleural effusion or larry cons olidation. IMPRESSION: Mild cardiomegaly and interstitial changes. Consider possibilities such as CHF with pulmonary vascula r congestion versus atypical pneumonias.
[2023-10-24] MEDS ORDERED: NALOXONE 0.4 MG/ML 1 ML VIAL IV PRN (16:52)
[2023-10-24] MEDS ORDERED: MORPHINE SULFATE 4 MG/ML SYRINGE IV PRN (16:52)
[2023-10-24] MEDS ORDERED: ACETAMINOPHEN TAB 325 MG TAB PO PRN (16:52)
[2023-10-24] MEDS ORDERED: ONDANSETRON 4 MG/2 ML VIAL IVP PRN (16:52)
[2023-10-24] MEDS: dexAMETHasone 2 MG TAB PO STA (17:32)
[2023-10-24] MEDS: VALSARTAN 160 MG TAB PO SCH (22:00)
[2023-10-24] MEDS: hydroCHLOROthiazide 12.5 MG CAP PO SCH (22:01)
[2023-10-24] MEDS: FAMOTIDINE 20 MG TAB PO SCH (22:02)
[2023-10-24] MEDS: HEPARIN SODIUM,PORCINE 5,000 UNIT/ML 1 ML VIAL SQ SCH (22:02)
[2023-10-24] MEDS: amLODIPine 5 MG TAB PO SCH (22:20)
[2023-10-24] MEDS: PANTOPRAZOLE 40 MG TABLET PO SCH (22:20)
[2023-10-24] MEDS: EZETIMIBE 10 MG TAB PO SCH (22:20)
[2023-10-25] MEDS ORDERED: ALBUTEROL NEBULIZED 2.5 MG/3 ML INHALATION PRN (07:19)
[2023-10-25] MEDS: SYMBICORT 80-4.5 MCG INHALER INHALATION SCH (08:49)
[2023-10-25] MEDS ORDERED: DEXAMETHASONE SOD PHOSPHATE 4 MG/ML 1 ML VIAL IVP PRN (11:39)
[2023-10-25 12:01] LABS: Basophils # (A) 0.1 k/uL (0-0.2); Basophils % (A) 1 %; Eosinophils % (A) 1 %; HGB 10.6 gm/dL (13.0-17.5); Lymphocytes % (A) 13 %; MCH 27.7 pg (25.0-35.0); MCHC 32.2 g/dL (31.0-37.0); Mean Platelet Volume 7.9; Monocytes # (A) 0.8 k/uL (0-1.0); Monocytes % (A) 11 %; Neutrophils # (A) 5.4 k/uL (1.3-7.7); Neutrophils % (A) 72 %; Platelet Count 258 k/uL (150-450); RBC 3.84 m/uL (4.30-5.90); RDW 14.1 % (11.5-15.5); WBC 7.5 k/uL (3.8-10.6)
[2023-10-25 12:08] VITALS: BMI 34.9
[2023-10-25 12:11] LABS: African American GFR (CKD) >90 (>60 ml/min/1.73 sqM); Anion Gap 7 mmol/L; Blood Urea Nitrogen 29 mg/dL (9-20); Calcium 8.8 mg/dL (8.4-10.2); Carbon Dioxide 20 mmol/L (22-30); Chloride 102 mmol/L (98-107); Glucose 92 mg/dL (74-99); Non-African American GFR(CKD) >90 (>60 ml/min/1.73 sqM); Sodium 129 mmol/L (137-145)
[2023-10-25 12:22] LABS: Potassium 4.4 mmol/L (3.5-5.1)
--- NOTE | 2023-10-25 17:42 | P.HPIM ---
History of Present Illness H&P Date: 10/25/23 Chief Complaint: AMS History of present illness; [place] Hong 77-year-old male with past medical history of hypertension, hyperlipidemia, GERD, asthma, esophageal cancer status post radiation with ongoing chemotherapy presents with altered mental status. Symptoms began 2 days ago when patient describes difficulty operating his phone. The following day, the patient began to have confusion while using the restroom, and needed help from his . Patient at this time states he has some difficulty recalling the events, but symptoms have improved since admission and treatment in the ER. Patient has no other complaints at this time. Initial lab work done in the ER showed hemoglobin 11.5, white blood cell WNL, sodium 131, BUN 28, total bilirubin 2.2, glucose 103, UAtrace proteins, ketones 1+. EKG done in the ER showed heart rate of 90, first-degree AV block, RBBB, no ST segment elevation or depression seen, no T-wave inversions seen. Chest x-ray done in the ER findings include mild cardiomegaly and interstitial changes, possible CHF with pulmonary vascular congestion versus atypical pneumonia. CT head done showed findings highly suggestive of 2.3 cm parenchymal lesion, metastatic disease, involving the right parietal lobe with surrounding vasogenic edema throughout the parietal lobe and back to the parietaloccipital junction. Mass effect causes effacement of the atrium over the left lateral ventricle. No midline shift or herniation, a 4.7 cm arachnoid cyst incidentally noted along the anterior floor of the left middle cranial fossa. Patient admitted to internal medicine service REVIEW OF SYSTEMS: CONSTITUTIONAL: No fever, no malaise, no fatigue. HEENT: No recent visual problems or hearing problems. Denied any sore throat. CARDIOVASCULAR: No chest pain, orthopnea, PND, no palpitations, no syncope. PULMONARY: No shortness of breath, no cough, no hemoptysis. GASTROINTESTINAL: No diarrhea, no nausea, no vomiting, no abdominal pain. NEUROLOGICAL: No headaches, no weakness, no numbness. HEMATOLOGICAL: Denies any bleeding or petechiae. GENITOURINARY: Denies any burning micturition, frequency, or urgency. MUSCULOSKELETAL/RHEUMATOLOGICAL: Denies any joint pain, swelling, or any muscle pain. ENDOCRINE: Denies any polyuria or polydipsia. The rest of the 14-point review of systems is negative. PHYSICAL EXAMINATION: GENERAL: The patient is alert and oriented x3, not in any acute distress. Well developed, well nourished. HEENT: Pupils are round and equally reacting to light. EOMI. No scleral icterus. No conjunctival pallor. Normocephalic, atraumatic. No pharyngeal erythema. No thyromegaly. CARDIOVASCULAR: S1 and S2 present. No murmurs, rubs, or gallops. PULMONARY: Chest is clear to auscultation, no wheezing or crackles. ABDOMEN: Soft, nontender, nondistended, normoactive bowel sounds. No palpable organomegaly. MUSCULOSKELETAL: No joint swelling or deformity. EXTREMITIES: No cyanosis, clubbing, or pedal edema 2+ NEUROLOGICAL: Gross neurological examination did not reveal any focal deficits. SKIN: No rashes. Assessment and plan #Altered mental status due to new brain metastasis with vasogenic edema CT brain findings of 2.3 cm parenchymal lesion, metastatic disease, with surrounding vasogenic edema. No midline shift or herniation. - Metastasis of esophageal cancer Treated with radiation therapy Currently undergoing biweekly chemotherapy oncology consulted. Consider radiation oncology consult. #Dehydration due to hyponatremia. BUN 28, sodium 131 on admission Chest x-ray findings with cardiomegaly Holding diuretic home hydrochlorothiazide at this time # Metastatic esophageal cancer Under current biweekly chemotherapy Consulted as above # Uncontrolled hypertension. Started back on losartan and amlodipine. Hydrochlorothiazide on hold. Continue to titrate doses as needed. Continue low-salt diet. Monitor vital signs Monitor CBC Monitor CMP Continue telemetry monitoring Labs and medication were reviewed. Continue with symptomatic treatment. Monitor labs and vitals. DVT and GI prophylaxis. Further recommendations as per clinical course of the patient Dictation was produced using [employer] dictation software. please excuse any grammatical, word or spelling errors. Teaching attestation: Attesting H&P. I have performed a physical exam and reviewed case with the resident. Management reviewed and agree with the plan. I personally provided more than half of the total time of more than 45 minutes dedicated to the treat ment of this patient. Past Medical History Past Medical History: Asthma, Cancer, Deep Vein Thrombosis (DVT), GERD/Reflux, Hyperlipidemia, Hypertension Additional Past Medical History / Comment(s): esophageal Ca, infusion treatment 10/15/23 every 4-6 weeks, radiation finished History of Any Multi-Drug Resistant Organisms: None Reported Past Surgical History: Hernia Repair, Joint Replacement, Orthopedic Surgery Additional Past Surgical History / Comment(s): partial knee replacement egd, feeding tube -REMOVED Past Anesthesia/Blood Transfusion Reactions: No Reported Reaction Additional Past Anesthesia/Blood Transfusion Reaction / Comment(s): no blood transfusion Smoking Status: Former smoker - Past Family History Mother Family Medical History: No Reported History Medications and Allergies Home Medications Medication Instructions Recorded Confirmed Type Albuterol Sulfate [Ventolin HFA] 2 puff INHALATION RT-QID PRN 07/01/23 10/24/23 History Ezetimibe [Zetia] 10 mg PO DAILY 07/01/23 10/24/23 History Fluticasone Propion/Salmeterol 1 puff INHALATION RT-DAILY 07/01/23 10/24/23 History [Wixela 100-50 Inhub] Omeprazole 20 mg PO DAILY 07/01/23 10/24/23 History Valsartan/Hydrochlorothiazide 1 tab PO DAILY 07/01/23 10/24/23 History [Valsartan-Hctz 160-12.5 mg Tab] amLODIPine [Norvasc] 5 mg PO DAILY 07/01/23 10/24/23 History Allergies Allergy/AdvReac Type Severity Reaction Status Date / Time No Known Allergies Allergy Verified 10/24/23 13:57 Physical Exam Vitals: Vital Signs Temp Pulse Pulse Resp BP BP Pulse Ox 10/25/23 01:22 99 F 85 18 162/73 96 10/24/23 20:30 99.9 F H 78 16 179/77 95 10/24/23 19:55 83 18 164/80 10/24/23 18:48 80 18 155/78 10/24/23 17:25 86 18 172/80 10/24/23 14:25 81 18 172/84 96 10/24/23 13:23 80 18 173/84 95 10/24/23 11:53 99.8 F H 85 16 158/72 97 Intake and Output 10/24/23 10/25/23 10/25/23 22:59 06:59 14:59 Output Total 1325 Balance -1325 Output: Urine 1325 Other: Voiding Method Urinal # Voids 1 Weight 104.326 kg Results CBC & Chem 7: 10/26/23 05:01 10/26/23 05:01 Labs: Abnormal Lab Results - Last 24 Hours (Table) 10/24/23 10/24/23 10/24/23 Range/Units 12:53 12:53 14:06 RBC 4.10 L (4.30-5.90) m/uL Hgb 11.5 L (13.0-17.5) gm/dL Hct 35.6 L (39.0-53.0) % Lymphocytes # 0.7 L (1.0-4.8) k/uL Sodium 131 L (137-145) mmol/L BUN 28 H (9-20) mg/dL Glucose 103 H (74-99) mg/dL Total Bilirubin 2.2 H (0.2-1.3) mg/dL Urine Protein Trace H (Negative) Urine Ketones 1+ H (Negative) Thrombosis Risk Factor Assmnt - Choose All That Apply Any of the Below Risk Factors Present?: No Other Risk Factors: Yes Each Risk Factor Represents 3 Points: Age 75 years or older, History of DVT/PE Other congenital or acquired thrombophilia - If yes, enter type in comment: No Thrombosis Risk Factor Assessment Total Risk Factor Score: 6 Thrombosis Risk Factor Assessment Level: High Risk
--- NOTE | 2023-10-25 18:47 | MR ---
EXAMINATION TYPE: MR brain wo/w con DATE OF EXAM: 10/25/2023 4:54 PM CLINICAL INDICATION:Male, 77 years old with history of brain mass noted on CT, hx esophageal cancer; PHH, Brain mass noted on CT, hx esophageal cancer. COMPARISON: 10/24/2023 TECHNIQUE: Multi planar, multi sequence imaging was performed through the brain including: T1, T2, In version recovery, susceptibility weighted imaging and gradient echo imaging and Diffusion weighted im aging. The patient was then given intravenous contrast and multi planar, T1 fat-saturation images wer e obtained. IV Contrast: 10.5 cc Gadavist FINDINGS: There is a peripherally enhancing cystic mass in the right occipital lobe measuring 30 x 23 x 28 mm. There is central restricted diffusion. Left middle cranial fossa CSF attenuating cystic structure measuring 47 x 29 mm likely representing a rachnoid cyst. There is mass effect upon the left temporal lobe. The gill-white junctions, ventricular system, basal cisterns appear unremarkable. Diffusion-weighted imaging shows no evidence of restricted diffusion to suggest acute/subacute infarct. Intracranial ar terial flow voids are maintained. Midline structures show no abnormality. Scattered foci of high T2 s ignal intensity are seen within the periventricular white matter. The susceptibility weighted images do not reveal any evidence for micro-hemorrhage. The bone marrow signal is within normal limits. Paranasal sinuses and mastoid air cells: No significant paranasal sinus disease. Visualized orbits: Orbital contents are intact. IMPRESSION: 1. Cystic mass in the right occipital lobe with surrounding vasogenic edema and peripheral enhancemen t. Findings concerning for metastatic disease until proven otherwise. 2. 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 3. Nonspecific white matter changes, likely related to small vessel ischemic disease.
[2023-10-26 02:04] VITALS: RESP 18
[2023-10-26 09:25] LABS: Basophils # (A) 0.05 X 10*3/uL (0.00-0.10); Basophils % (A) 0.7 %; Eosinophils # (A) 0.13 X 10*3/uL (0.04-0.35); Eosinophils % (A) 1.7 %; HCT 31.9 % (39.6-50.0); HGB 10.2 g/dL (13.0-17.0); Lymphocytes % (A) 15.8 %; MCH 27.1 pg (27.0-32.0); MCV 84.6 FL (80.0-97.0); Mean Platelet Volume 9.9 FL (9.5-12.2); Monocytes # (A) 0.89 X 10*3/uL (0.20-1.00); Monocytes % (A) 11.7 %; NRBC Per 100 WBC 0 X 10*3/uL (0.00-0.01); Neutrophils # (A) 5.29 X 10*3/uL (1.80-7.70); Neutrophils % (A) 69.7 %; Platelet Count 274 X 10*3/uL (140-440); RBC 3.77 X 10*6/uL (4.40-5.60); RDW 14.1 % (11.5-14.5); WBC 7.59 X 10*3/uL (4.50-10.00)
[2023-10-26 09:40] LABS: BUN/Creat Ratio 36.25 Ratio (12.00-20.00); Calcium 8.6 mg/dL (8.7-10.3); Carbon Dioxide 23.9 mmol/L (21.6-31.8); Chloride 97 mmol/L (96-109); Glucose 101 mg/dL (70-110); Sodium 131 mmol/L (135-145)
--- NOTE | 2023-10-26 13:24 | P.CONS ---
History of Present Illness - Reason for Consult Consult date: 10/25/23 suspected brain met, hx esophageal cancer Requesting physician: Ronald Perez - Chief Complaint altered mental status - History of Present Illness Patient is a 77 year old male with a significant history of esophageal adenocarcinoma. He is a patient of Dr. Cullen Villegas. He initially presented with progressive dysphagia and weight loss since october 2022, he stated loosing 50 LBS since then. He was evaluated by Dr Shipley, had EGD on 02/09/23 revealing well differentiated Adenocarcinoma. PET Scan revealed increased FDG uptake in large mass in lower Esophagus C/W primary tumor, no distant mets identified.He underwent concurrent chemo/RT, and completed 5 cycle of carbo/taxol on 04/09/23. He was then started on Herceptin on 07/02/23, and most recently compelted cycle 5 on 10/15/23. PET/CT on 09/22/2023 showed increasing volume of radiotracer within the distal esophagus above the hiatal hernia without increased uptake. Distant abnormal uptake to suggest metastasis not identified. Patient underwent EGD with Dr. Correia on 10/16/2023, biopsy of the esophagus revealed high-grade dysplasia/adenocarcinoma in situ. Awaiting Her2 by FISH results. Plan to continue Herceptin for now. Patient presented to the emergency room with complaints of altered mental status and generalized weakness over the last [address] brain without contrast revealed 2.3 cm parenchymal lesion involving the right parietal lobe with surrounding vasogenic edema. Mass effect causes effacement of the atrium of the right lateral ventricle. With no midline shift or herniation. 4.7 cm a rachnoid cyst also noted along the anterior floor of the left middle cranial fossa. Patient was started on IV dexamethasone. Has noted improvement in mentation today, currently at baseline. NO slurred speech, facial droop, or unilateral weakness noted. Labs reviewed, WBC 8.7, hemoglobin 11.5, platelets 251,000. Creatinine 0.66, GFR greater than 90. Sodium 131. Bilirubin 2.2, LFTs WNL. Troponin negative. CXR showing mild cardiomegaly and interstitial changes. Urinalysis negative for UTI. Blood cultures pending, Tmax 99.9. Review of Systems 10 point ROS is negative except as stated in the HPI Past Medical History Past Medical History: Asthma, Cancer, Deep Vein Thrombosis (DVT), GERD/Reflux, Hyperlipidemia, Hypertension Additional Past Medical History / Comment(s): esophageal Ca, infusion treatment 10/15/23 every 4-6 weeks, radiation finished History of Any Multi-Drug Resistant Organisms: None Reported Past Surgical History: Hernia Repair, Joint Replacement, Orthopedic Surgery Additional Past Surgical History / Comment(s): partial knee replacement egd, feeding tube -REMOVED Past Anesthesia/Blood Transfusion Reactions: No Reported Reaction Additional Past Anesthesia/Blood Transfusion Reaction / Comm: no blood transfusion Smoking Status: Former smoker - Past Family History Mother Family Medical History: No Reported History Medications and Allergies Home Medications Medication Instructions Recorded Confirmed Type Albuterol Sulfate [Ventolin HFA] 2 puff INHALATION RT-QID PRN 07/01/23 10/24/23 History Ezetimibe [Zetia] 10 mg PO DAILY 07/01/23 10/24/23 History Fluticasone Propion/Salmeterol 1 puff INHALATION RT-DAILY 07/01/23 10/24/23 History [Wixela 100-50 Inhub] Omeprazole 20 mg PO DAILY 07/01/23 10/24/23 History Valsartan/Hydrochlorothiazide 1 tab PO DAILY 07/01/23 10/24/23 History [Valsartan-Hctz 160-12.5 mg Tab] amLODIPine [Norvasc] 5 mg PO DAILY 07/01/23 10/24/23 History Allergies Allergy/AdvReac Type Severity Reaction Status Date / Time No Known Allergies Allergy Verified 10/24/23 13:57 Physical Exam Vitals: Vital Signs Temp Pulse Pulse Resp BP BP Pulse Ox 10/25/23 13:46 98.2 F 74 18 137/58 96 10/25/23 08:35 98.3 F 75 16 151/70 97 10/25/23 07:36 98.0 F 81 17 177/81 96 10/25/23 01:22 99 F 85 18 162/73 96 10/24/23 20:30 99.9 F H 78 16 179/77 95 10/24/23 19:55 83 18 164/80 95 10/24/23 18:48 80 18 155/78 95 10/24/23 17:25 86 18 172/80 95 Intake and Output 10/24/23 10/25/23 10/25/23 22:59 06:59 14:59 Output Total 1325 Balance -1325 Output: Urine 1325 Other: Voiding Method Urinal # Voids 1 Weight 104.326 kg 104.326 kg - Constitutional General appearance: average body habitus, no acute distress - EENT Eyes: anicteric sclerae, EOMI ENT: hearing grossly normal - Respiratory Respiratory: bilateral: CTA - Cardiovascular Rhythm: regular - Gastrointestinal General gastrointestinal: soft, no tenderness - Integumentary Integumentary: no cyanotic, no jaundiced - Neurologic no focal deficits, generalized weakness - Musculoskeletal Musculoskeletal: generalized weakness - Psychiatric Psychiatric: A&O x's 3 Results CBC & Chem 7: 10/26/23 05:01 10/26/23 05:01 Labs: Abnormal Lab Results - Last 24 Hours (Table) 10/24/23 10/25/23 10/25/23 Range/Units 14:06 11:32 11:32 RBC 3.84 L (4.30-5.90) m/uL Hgb 10.6 L (13.0-17.5) gm/dL Hct 33.0 L (39.0-53.0) % Sodium 129 L (137-145) mmol/L Carbon Dioxide 20 L (22-30) mmol/L BUN 29 H (9-20) mg/dL Creatinine 0.58 L (0.66-1.25) mg/dL Urine Protein Trace H (Negative) Urine Ketones 1+ H (Negative) Comments: PET CT and path reviewed Chest x-ray: report reviewed CT Scan - head: report reviewed Assessment and Plan (1) Altered mental status Current Visit: Yes Status: Acute Priority: High Code(s): R41.82 - ALTERED MENTAL STATUS, UNSPECIFIED SNOMED Code(s): 487035684 (2) Weakness Current Visit: Yes Status: Acute Priority: High Code(s): R53.1 - WEAKNESS SNOMED Code(s): 63204646 (3) Esophageal adenocarcinoma Current Visit: Yes Status: Acute Priority: High Code(s): C15.9 - MALIGNANT NEOPLASM OF ESOPHAGUS, UNSPECIFIED SNOMED Code(s): 861458737 Plan: Altered mental status, brain lesion: Presented to the emergency room with complaints of altered mental status and generalized weakness. -On admission CT brain without contrast revealed 2.3 cm parenchymal lesion involving the right parietal lobe with surrounding vasogenic edema. Mass effect causes effacement of the atrium of the right lateral ventricle. With no mid line shift or herniation. 4.7 cm arachnoid cyst also noted along the anterior floor of the left middle cranial fossa. -IV dexamethasone started. Has noted improvement in mentation today, currently at baseline. -Will obtain brain MRI for further evaluation of noted lesion -Rad onc consulted, spoke with Dr. Rocha regarding case. Pending MRI results, pt may need transfer for neuro surg evaluation Esophageal adenocarcinoma: -Full oncological history in [facility] -Started on Herceptin on 07/02/23, and most recently completed cycle 5 on 10/15/23 -PET/CT on 09/22/2023 showed increasing volume of radiotracer within the distal esophagus above the hiatal hernia without increased uptake. Distant abnormal uptake to suggest metastasis not identified. -Patient underwent EGD with Dr. Correia on 10/16/2023, biopsy of the esophagus revealed high-grade dysplasia/adenocarcinoma in situ. Awaiting Her2 by FISH re ivette -Treatment will be on hold for now, pending workup for suspected brain met Doctor attests: I performed a history and physical examination of this patient, developed impression and plan of care. Discussed with dictator. I agree with dictators note, documented as a scribe.
--- NOTE | 2023-10-26 13:44 | P.DS ---
Providers Date of admission: 10/24/23 16:58 Expected date of discharge: 10/26/23 Attending physician: Sebastian Helms Consults: 10/24/23 16:52 Consult Physician Routine Consulting Provider: Nima Cook Consult Reason/Comments: Altered mental status. Suspected brain metastasis Do you want consulting provider notified?: Yes 10/25/23 14:38 Consult Physician Routine Consulting Provider: Benton Rocha Consult Reason/Comments: brain mass Do you want consulting provider notified?: Already Contacted Primary care physician: Nicko Aguillon - Discharge Diagnosis(es) (1) Uncontrolled hypertension Current Visit: Yes Status: Acute (2) Altered mental status Current Visit: Yes Status: Acute Priority: High (3) Esophageal adenocarcinoma Current Visit: Yes Status: Acute Priority: High (4) Metastasis from esophageal cancer Current Visit: Yes Status: Acute (5) Metastatic cancer to brain Current Visit: Yes Status: Acute Hospital Course: Discharge diagnoses; #Altered mental status due to new brain metastasis with vasogenic edema CT brain findings of 2.3 cm parenchymal lesion, metastatic disease, with surrounding vasogenic edema. No midline shift or herniation. MRI findings of cystic mass in right occipital lobe with surrounding vasogenic edema and peripheral enhancement. Findings concerning for metastatic disease until proven otherwise. - Metastasis of esophageal cancer Treated with radiation therapy Currently undergoing biweekly chemotherapy Seen by Oncology, outpatient appointment next week #Dehydration due to hyponatremia Sodium 131 BUN 28 on admission, remains stable Chest x-ray findings with cardiomegaly Holding diuretics at this time - Continue good oral intake on discharge #Metastatic Esophageal cancer Under current biweekly chemotherapy Consulted as above #Hypertension uncontrolled Titrated dose of antihypertensive in hospital Hold hydrochlorothiazide in hospital, okay to continue on D/C Counseled patient on low salt diet Hospital course; History of present illness; Rajiv Hong 77-year-old male with past medical history of hypertension, hyperlipidemia, GERD, asthma, esophageal cancer status post radiation with ongoing chemotherapy presents with altered mental status. Symptoms began 2 days ago when patient describes difficulty operating his phone. The following day, the patient began to have confusion while using the restroom, and needed help from his . Patient at this time states he has some difficulty recalling the events, but symptoms have improved since admission and treatment in the ER. Patient has no other complaints at this time. Initial lab work done in the ER showed hemoglobin 11.5, white blood cell WNL, sodium 131, BUN 28, total bilirubin 2.2, glucose 103, UAtrace proteins, ketones 1+. EKG done in the ER showed heart rate of 90, first-degree AV block, RBBB, no ST segment elevation or depression seen, no T-wave inversions seen. Chest x-ray done in the ER findings include mild cardiomegaly and interstitial changes, possible CHF with pulmonary vascular congestion versus atypical pneumonia. CT head done showed findings highly suggestive of 2.3 cm parenchymal lesion, metastatic disease, involving the right parietal lobe with surrounding vasogenic edema throughout the parietal lobe and back to the parietaloccipital junction. Mass effect causes effacement of the atrium over the left lateral ventricle. No midline shift or herniation, a 4.7 cm arachnoid cyst incidentally noted along the anterior floor of the left middle cranial fossa. 10-26-23 Patient examined at bedside. No overnight events. Patient is resting and states he has improved mentation, family states he is at his baseline. Patient is eating well. No other complaints at this time. He will be discharged with Decadron 4 mg every 6 hours. Patient will be discharged to home. Patient to follow-up with oncologist Dr Villegas next week for out patient appointment. PHYSICAL EXAMINATION: GENERAL: The patient is alert and oriented x3, not in any acute distress. Well developed, well nourished. HEENT: Pupils are round and equally reacting to light. EOMI. No scleral icterus. No conjunctival pallor. Normocephalic, atraumatic. No pharyngeal erythema. No thyromegaly. CARDIOVASCULAR: S1 and S2 present. No murmurs, rubs, or gallops. PULMONARY: Chest is clear to auscultation, no wheezing or crackles. ABDOMEN: Soft, nontender, nondistended, normoactive bowel sounds. No palpable organomegaly. MUSCULOSKELETAL: No joint swelling or deformity. EXTREMITIES: No cyanosis, clubbing, or pedal edema 2+ NEUROLOGICAL: Gross neurological examination did not reveal any focal deficits. SKIN: No rashes. Dictation was produced using [employer] software. please excuse any grammatical, word or spelling errors. Patient Condition at Discharge: Good Plan - Discharge Summary Discharge Rx Participant: No New Discharge Prescriptions: No Action amLODIPine [Norvasc] 5 mg PO DAILY Ezetimibe [Zetia] 10 mg PO DAILY Omeprazole 20 mg PO DAILY Albuterol Sulfate [Ventolin HFA] 2 puff INHALATION RT-QID PRN PRN Reason: Shortness Of Breath Valsartan/Hydrochlorothiazide [Valsartan-Hctz 160-12.5 mg Tab] 1 tab PO DAILY Fluticasone Propion/Salmeterol [Wixela 100-50 Inhub] 1 puff INHALATION RT- DAILY Discharge Medication List Albuterol Sulfate [Ventolin HFA] 2 puff INHALATION RT-QID PRN 07/01/23 [History] Ezetimibe [Zetia] 10 mg PO DAILY 07/01/23 [History] Fluticasone Propion/Salmeterol [Wixela 100-50 Inhub] 1 puff INHALATION RT-DAILY 07/01/23 [History] Omeprazole 20 mg PO DAILY 07/01/23 [History] Valsartan/Hydrochlorothiazide [Valsartan-Hctz 160-12.5 mg Tab] 1 tab PO DAILY 07/01/23 [History] amLODIPine [Norvasc] 5 mg PO DAILY 07/01/23 [History] Follow up Appointment(s)/Referral(s): Nicko Aguillon DO [Primary Care Provider] - 1-2 days
[2023-10-26] MEDS: DEXAMETHASONE SOD PHOSPHATE 4 MG/ML 1 ML VIAL IVP SCH (13:55)
[2023-10-26 14:11] VITALS: BP 108/52; PULSE 75; TEMP 98.4
--- NOTE | 2023-10-28 08:50 | P.CONS ---
History of Present Illness - Reason for Consult Consult date: 10/25/23 Brain lesion Requesting physician: Luther Villegas - Chief Complaint "I am feeling much better" - History of Present Illness Mr. Hong is a 77-year-old male with a stage III (cT3, cN1, cM0) adenocarcinoma of the GEJ. He underwent a course of definitive concurrent chemoradiation to 50.4 Gy, completing treatment on 04/22/2023. He presents with altered mental status with CT evidence of a right-sided brain lesion. The patient is well-known to me. At the time of our last encounter, PET/CT had demonstrated evidence concerning for localized GEJ recurrence. He had been on maintenance Herceptin. He underwent EGD per Dr. Correia on 10/16/2023 which demonstrated an ulcerative mass from 37-40 cm from the incisors. Biopsy demonstrated at least high grade dysphagia/adenocarcinoma in situ. He now presents to the with an acute history of altered mental status and weakness. CT brain demonstrated a 2.3 cm right parietal lesion with associated mass effect. He was started on high-dose Decadron and has improved significantly. Today, he notes he feels back to baseline on steroids. He denies any neurological effects. MRI brain is scheduled for later today. Review of Systems negative except as per HPI Past Medical History Past Medical History: Asthma, Cancer, Deep Vein Thrombosis (DVT), GERD/Reflux, Hyperlipidemia, Hypertension Additional Past Medical History / Comment(s): esophageal Ca, infusion treatment 10/15/23 every 4-6 weeks, radiation finished History of Any Multi-Drug Resistant Organisms: None Reported Past Surgical History: Hernia Repair, Joint Replacement, Orthopedic Surgery Additional Past Surgical History / Comment(s): partial knee replacement egd, feeding tube -REMOVED Past Anesthesia/Blood Transfusion Reactions: No Reported Reaction Additional Past Anesthesia/Blood Transfusion Reaction / Comm: no blood transfusion Smoking Status: Former smoker - Past Family History Mother Family Medical History: No Reported History Medications and Allergies Home Medications Medication Instructions Recorded Confirmed Type Albuterol Sulfate [Ventolin HFA] 2 puff INHALATION RT-QID PRN 07/01/23 10/24/23 History Ezetimibe [Zetia] 10 mg PO DAILY 07/01/23 10/24/23 History Fluticasone Propion/Salmeterol 1 puff INHALATION RT-DAILY 07/01/23 10/24/23 History [Wixela 100-50 Inhub] Omeprazole 20 mg PO DAILY 07/01/23 10/24/23 History Valsartan/Hydrochlorothiazide 1 tab PO DAILY 07/01/23 10/24/23 History [Valsartan-Hctz 160-12.5 mg Tab] amLODIPine [Norvasc] 5 mg PO DAILY 07/01/23 10/24/23 History dexAMETHasone [Decadron] 4 mg PO Q6HR 7 Days #28 tablet 10/26/23 Rx Allergies Allergy/AdvReac Type Severity Reaction Status Date / Time No Known Allergies Allergy Verified 10/24/23 13:57 Physical Exam - Constitutional General appearance: no acute distress - Respiratory Respiratory: negative: prolonged expiration, prolonged inspiration - Neurologic no focal deficits - Psychiatric Psychiatric: A&O x's 3, appropriate affect, intact judgment & insight Results CBC & Chem 7: 10/26/23 05:01 10/26/23 05:01 Labs: Microbiology - Last 24 Hours (Table) 10/24/23 13:17 Blood Culture - Preliminary Blood 10/24/23 13:17 Blood Culture - Preliminary Blood Assessment and Plan Assessment: Mr. Hong is a 77-year-old male with a stage III (cT3, cN1, cM0) adenocarcinoma of the GEJ. He underwent a course of definitive concurrent chemoradiation to 50.4 Gy, completing treatment on 04/22/2023. He presents with altered mental status with CT evidence of a right-sided brain lesion. Plan: The patient has improved significantly on steroids. MRI brain is pending. I discussed the next steps at length with the patient and his son. I will plan on offering SRS to the brain lesion, assuming there are not many additional lesions identified on MRI imaging. Given the size of the lesion and his clinical improvement, I do not think neurosurgical evaluation is needed. He will follow- up closely with me next week to coordinate radiation therapy. Benton Rocha MD Radiation Oncology Time with Patient: Greater than 30
--- NOTE | 2023-11-06 15:36 | CDI ---
Documentation Clarification Form Date: 11/06/2023 02:44:38 PM From: Moni Tyler RN, CCDS Phone: [phone] Admit Date: 10/24/2023 04:58:00 PM Patient Name: Rajiv Hong Visit Number: [id number] Discharge Date: 10/26/2023 04:30:00 PM ATTENTION: The Clinical Documentation Specialists (CDI) and [facility] Coding Staff appreciate your assistance in clarifying documentation. Please respond to the clarification below the line at the bottom and electronically sign. The CDI & [facility] Coding staff will review the response and follow-up if needed. Please note: Queries are made part of the Legal Health Record. If you have any questions, please contact the author of this message via ITS. Dr. Yaakov Steen The patient had vasogenic edema mass effect resulting in asymmetric effacement of the atrium of the right lateral ventricle. Based on this information and the findings below, is there an additional diagnosis that is clinically appropriate for this patient? 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 Presented with confusion and generalized weakness. Admitted with AMS d/t new brain metastases with vasogenic edema. Clinical Indicators: 10/[address]: Findings highly suggestive of a 2.3 cm parenchymal lesion (metastatic disease) involving the right parietal lobe with surrounding vasogenic edema throughout the parietal lobe and back to the parieto-occipital junction. Mass effect causes effacement of the atrium of the right lateral ventricle. No midline shift or herniation. 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 10/25 Discharge summary: "MRI findings of cystic mass in right occipital lobe with surrounding vasogenic edema and peripheral enhancement. Symptoms have improved since admission and treatment in the ER." 10/27 Consult: "He was started on high-dose Decadron and has improved significantly." Treatment: Dexamethasone 6mg po x1 on 10/23; IV Decadron 4mg x1 on 10/25; discharge on oral Dexamethasone Is there an additional diagnosis that is clinically appropriate for this patient? [ x ] Brain compression [ ] No additional diagnosis/Not clinically significant [ ] Unable to determine [ ] Other, please specify MTDD
== END 2023-10-26 16:30 | disposition home or self-care (01) | DRG 54 ==
LOC: EC 11:49 → 5NMEDONC 16:58
PROVIDERS: ADMIT Hospitalist; ATTEND Hospitalist
DX: C79.31 Secondary malignant neoplasm of brain (principal); G93.5 Compression of brain; G93.6 Cerebral edema; C15.5 Malignant neoplasm of lower third of esophagus; E87.1 Hypo-osmolality and hyponatremia; I11.9 Hypertensive heart disease without heart failure; E78.5 Hyperlipidemia, unspecified; E86.0 Dehydration; J45.909 Unspecified asthma, uncomplicated; G93.0 Cerebral cysts; I44.0 Atrioventricular block, first degree; K44.9 Diaphragmatic hernia without obstruction or gangrene; I45.10 Unspecified right bundle-branch block; Z96.659 Presence of unspecified artificial knee joint; Z79.51 Long term (current) use of inhaled steroids; Z87.891 Personal history of nicotine dependence; Z92.3 Personal history of irradiation; Z79.899 Other long term (current) drug therapy
CPT/HCPCS: 36415; 70450; 70553; 71046; 80048; 80053; 81003; 83605; 84145; 84484; 85025; 85610; 85730; 87040; 93005; 94640; 96361; 96365; 99285

== ENCOUNTER 2023-11-05 12:10 | Inpatient (IN) | payer MEDICARE, OTHER ==
--- NOTE | 2023-11-05 13:09 | ED ---
General Adult HPI - General Chief complaint: Weakness Stated complaint: Headache Time Seen by Provider: 11/05/23 12:26 Source: patient, EMS Mode of arrival: EMS - History of Present Illness Initial comments: Dictation was produced using [employer] dictation software. please excuse any g rammatical, word or spelling errors. 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 Patient follows up with a cancer specialist. He is supposed to get cancer treatment performed soon. For the last 3 days he has had a headache to his bilateral frontal area. States that it is a 4 out of 10. Patient denies thunderclap nature. Denies that this is the worst headache of his life. Patient denies any visual changes or extremity deficits. The ROS documented in this emergency department record has been reviewed and confirmed by me. Those systems with pertinent positive or negative responses have been documented in the HPI. All other systems are other negative and/or noncontributory. - Related Data Home Medications Medication Instructions Recorded Confirmed Albuterol Sulfate [Ventolin HFA] 2 puff INHALATION RT-QID PRN 07/01/23 10/24/23 Ezetimibe [Zetia] 10 mg PO DAILY 07/01/23 10/24/23 Fluticasone Propion/Salmeterol 1 puff INHALATION RT-DAILY 07/01/23 10/24/23 [Wixela 100-50 Inhub] Omeprazole 20 mg PO DAILY 07/01/23 10/24/23 Valsartan/Hydrochlorothiazide 1 tab PO DAILY 07/01/23 10/24/23 [Valsartan-Hctz 160-12.5 mg Tab] amLODIPine [Norvasc] 5 mg PO DAILY 07/01/23 10/24/23 Previous Rx's Medication Instructions Recorded dexAMETHasone [Decadron] 4 mg PO Q6HR 7 Days #28 tablet 10/26/23 Allergies Allergy/AdvReac Type Severity Reaction Status Date / Time No Known Allergies Allergy Verified 10/24/23 13:57 Review of Systems ROS Statement: Those systems with pertinent positive or pertinent negative responses have been documented in the HPI. ROS Other: All systems not noted in ROS Statement are negative. Past Medical History Past Medical History: Asthma, Cancer, Deep Vein Thrombosis (DVT), GERD/Reflux, Hyperlipidemia, Hypertension Additional Past Medical History / Comment(s): esophageal Ca, infusion treatment 10/15/23 every 4-6 weeks, radiation finished History of Any Multi-Drug Resistant Organisms: None Reported Past Surgical History: Hernia Repair, Joint Replacement, Orthopedic Surgery Additional Past Surgical History / Comment(s): partial knee replacement egd, feeding tube -REMOVED Past Anesthesia/Blood Transfusion Reactions: No Reported Reaction Additional Past Anesthesia/Blood Transfusion Reaction / Comment(s): no blood transfusion Past Psychological History: No Psychological Hx Reported Smoking Status: Former smoker Past Alcohol Use History: None Reported Past Drug Use History: None Reported - Past Family History Mother Family Medical History: No Reported History General Exam - General Exam Comments Initial Comments: PHYSICAL EXAM: General Impression: Alert and oriented x3, not in acute distress HEENT: Normocephalic atraumatic, extra-ocular movements intact, pupils equal and reactive to light bilaterally, mucous membranes moist. Cardiovascular: Heart regular rate and rhythm Chest: Able to complete full sentences, no retractions, no tachypnea Abdomen: abdomen soft, non-tender, non-distended, no organomegaly Musculoskeletal: Pulses present and equal in all extremities, no peripheral edema Motor: no focal deficits noted Neurological: CN II-XII grossly intact, no focal motor or sensory deficits noted Skin: Intact with no visualized rashes Psych: Normal affect and mood Course Vital Signs 11/05/23 11/05/23 12:20 15:00 Temperature 97.8 F Pulse Rate 72 70 Respiratory 16 18 Rate Blood Pressure 152/69 160/68 O2 Sat by Pulse 98 96 Oximetry - Reevaluation(s) Reevaluation #1: 11/05/23 15:01 Patient reevaluated bedside at 3:00 PM. He states that his headache is significantly improved. Patient was going to be discharged when intervened states that she does not want him to be discharged because he is unable to walk. Patient has not been unable to walk for the last several weeks. He likely has progression of brain mass causing his worsening debility. Patient reports that he has a mass in his brain that is inoperable. He is scheduled to have radiation treatment locally in 5 days. They refused to be transferred because of transportation issues. They understand that we do not have bset rosurgery at our hospital and that we are unable to treat his brain mass accordingly. He understands. He would like to be admitted for debility only. Reevaluation #2: 11/05/23 15:[address] Appiah who is willing to accept patient care for admission. Medical Decision Making - Medical Decision Making Was pt. sent in by a medical professional or institution (, PA, PATROL MOTHER, urgent care, hospital, or skilled nursing...) When possible be specific @ -[No] Did you speak to anyone other than the patient for history (EMS, parent, family, police, friend...)? What history was obtained from this source @ -Some history obtained from patient's however she had a stroke and she is a poor historian. Did you review nursing and triage notes (agree or disagree)? Why? @ -[I reviewed and agree with nursing and triage notes] Were old charts reviewed (outside hosp., previous admission, EMS record, old EKG, old radiological studies, urgent care reports/EKG's, skilled nursing records)? Report findings @ -Previous CT brain results were reviewed showing patient has history of brain mass Differential Diagnosis (chest pain, altered mental status, abdominal pain women, abdominal pain men, vaginal bleeding, musculoskeletal, weakness, fever, dyspnea, syncope, headache, dizziness, GI bleed, back pain, seizure, CVA, palpatations, mental health)? @ -Differential Headache: Migraine, tension, cluster, carbon monoxide, central venous thrombosis, pension karma temporal arteritis, acute closure glaucoma, intercranial hemorrhage, mastoiditis, sinusitis, head injury, this is not meant to be an all-inclusive list. EKG interpreted by me (3pts min.). @ -[None done] X-rays interpreted by me (1pt min.). @ -[None done] CT interpreted by me (1pt min.). @ -CT brain shows stable intracranial findings. There is a large cystic mass in the right parietal occipital lobes U/S interpreted by me (1pt. min.). @ -[None done] What testing was considered but not performed or refused? (CT, X-rays, U/S, labs)? Why? @ -[None] What meds were considered but not given or refused? Why? @ -[None] Was smoking cessation discussed for >3mins.? @ -[No] Were there social determinants of health that impacted care today? How? (Homelessness, low income, unemployed, alcoholism, drug addiction, transportation, low edu. Level, literacy, decrease access to med. care, nursing home, rehab)? @ -[No] Was there de-escalation of care discussed even if they declined (Discuss DNR or withdrawal of care, Hospice)? DNR status @ -Disposition options were discussed with patient. They were told that they have to disposition options. . patient given option for discharge given that They are given the option of being dischargedhe to home with plans to make to his radiation appointment in 5 days. Or being transferred to a facility that contains neurosurgery. Did not like either of those options. states that she does not want to take him home because he cannot walk. Patient does not want to be transferred to neurosurgical facility. and patient discussed that they would like to be admitted here for social reasons given that he has worsening debility. They do understand that we do not have neurosurgery or any sort of specialist that can manage his brain mass. They understand that he co uld get worse from a neurological standpoint and that we are unable to treat that given that we do not have the proper specialist here. They understand that and are more concerned that he cannot walk and is having trouble caring for him. States that his brain mass is an operable. They would prefer that plan. Patient wishes to be no code. What co-morbidities impacted this encounter? (DM, HTN, Smoking, COPD, CAD, Cancer, CVA, ARF, Chemo, Hep., AIDS, mental health diagnosis, sleep apnea, m orbid obesity)? @ -Brain mass, esophageal mass, worsening debility Was patient admitted / discharged? Hospital course, mention meds given and route, prescriptions, significant lab abnormalities, going to OR and other pertinent info. @ -78-year-old male presents with chief complaint of headache. Patient's brain mass appears to be same on imaging studies. Patient does not want to be discharged due to debility. Patient will be admitted. Case discussed with Dr. Appiah who is agreeable with plan. Patient made no code Did you discuss the management of the patient with other professionals (profjesus sionals i.e. , PA, PATROL MOTHER, lab, RT, psych nurse, geriatric social worker, radial drill operator for plastic, teacher, forest officer, bilingual case manager)? Give summary @ -case discussed with Dr. Appiah for admission Was critical care preformed (if so, how long)? @ -[No] Undiagnosed new problem with uncertain prognosis? @ -[No] Drug Therapy requiring intensive monitoring for toxicity (Heparin, Nitro, Insulin, Cardizem)? @ -[No] Were any procedures done? @ -[No] Diagnosis/symptom? Acute, or Chronic, or Acute on Chronic? Uncomplicated (w ithout systemic symptoms) or Complicated (systemic symptoms)? @ -Debility Side effects of treatment? @ -[No] Exacerbation, Progression, or Severe Exacerbation? @ -[No] Poses a threat to life or bodily function? How? (Chest pain, USA, LA, pneumonia, PE, COPD, DKA, ARF, appy, cholecystitis, CVA, Diverticulitis, Homicidal, Suicidal, threat to staff... and all critical care pts) @ -yes - Lab Data Result diagrams: 11/05/23 13:38 11/05/23 13:38 Lab Results 11/05/23 11/05/23 Range/Units 13:38 13:38 WBC 15.2 H (3.8-10.6) k/uL RBC 4.70 (4.30-5.90) m/uL Hgb 12.9 L (13.0-17.5) gm/dL Hct 40.4 (39.0-53.0) % MCV 85.9 (80.0-100.0) fL MCH 27.5 (25.0-35.0) pg MCHC 32.0 (31.0-37.0) g/dL RDW 14.4 (11.5-15.5) % Plt Count 389 (150-450) k/uL MPV 7.1 Neutrophils % 93 % Lymphocytes % 2 % Monocytes % 4 % Eosinophils % 0 % Basophils % 0 % Neutrophils # 14.1 H (1.3-7.7) k/uL Lymphocytes # 0.3 L (1.0-4.8) k/uL Monocytes # 0.7 (0-1.0) k/uL Eosinophils # 0.1 (0-0.7) k/uL Basophils # 0.0 (0-0.2) k/uL Hypochromasia Slight Sodium 130 L (137-145) mmol/L Potassium 4.3 (3.5-5.1) mmol/L Chloride 99 (98-107) mmol/L Carbon Dioxide 25 (22-30) mmol/L Anion Gap 6 mmol/L BUN 55 H (9-20) mg/dL Creatinine 0.73 (0.66-1.25) mg/dL Est GFR (CKD-EPI)AfAm >90 (>60 ml/min/1.73 sqM) Est GFR (CKD-EPI)NonAf 88 (>60 ml/min/1.73 sqM) Glucose 109 H (74-99) mg/dL Calcium 8.8 (8.4-10.2) mg/dL Disposition Clinical Impression: Gravely disabled Disposition: ADMITTED IP TO THIS HOSP Condition: Fair Referrals: Nicko Aguillon DO [Primary Care Provider] - 1-2 days Decision Time: 15:23
[2023-11-05] MEDS: diphenhydrAMINE 50 MG/ML 1 ML VIAL IVP STA (13:33)
[2023-11-05] MEDS: ONDANSETRON 4 MG/2 ML VIAL IVP STA (13:33)
[2023-11-05] MEDS: DEXAMETHASONE SOD PHOSPHATE 10 MG/ML 1 ML VIAL IV STA (13:34)
[2023-11-05 13:50] LABS: Basophils % (A) 0 %; Eosinophils # (A) 0.1 k/uL (0-0.7); Eosinophils % (A) 0 %; HCT 40.4 % (39.0-53.0); HGB 12.9 gm/dL (13.0-17.5); Hypochromasia Slight; Lymphocytes # (A) 0.3 k/uL (1.0-4.8); Lymphocytes % (A) 2 %; MCH 27.5 pg (25.0-35.0); MCV 85.9 fL (80.0-100.0); Mean Platelet Volume 7.1; Monocytes # (A) 0.7 k/uL (0-1.0); Monocytes % (A) 4 %; Neutrophils # (A) 14.1 k/uL (1.3-7.7); Neutrophils % (A) 93 %; Platelet Count 389 k/uL (150-450); RDW 14.4 % (11.5-15.5); WBC 15.2 k/uL (3.8-10.6)
[2023-11-05 14:01] LABS: African American GFR (CKD) >90 (>60 ml/min/1.73 sqM); Anion Gap 6 mmol/L; Blood Urea Nitrogen 55 mg/dL (9-20); Calcium 8.8 mg/dL (8.4-10.2); Carbon Dioxide 25 mmol/L (22-30); Chloride 99 mmol/L (98-107); Glucose 109 mg/dL (74-99); Non-African American GFR(CKD) 88 (>60 ml/min/1.73 sqM); Potassium 4.3 mmol/L (3.5-5.1); Sodium 130 mmol/L (137-145)
[2023-11-05] MEDS: SODIUM CHLORIDE 0.9% 1,000 ML IV STA (14:21)
--- NOTE | 2023-11-05 14:43 | CT ---
EXAMINATION TYPE: CT brain wo con CT DLP: 1095.4 mGycm, Automated exposure control for dose reduction was used. DATE OF EXAM: 11/05/2023 2:08 PM . MRI brain 10/25/2023 COMPARISON: CT brain 10/24/2023. CLINICAL INDICATION:Male, 78 years old with history of headache, Headache TECHNIQUE: Brain: Axial CT images of the brain were obtained with coronal and sagittal reformats created and rev iewed. Contrast used: None. Oral contrast used: None. FINDINGS: Brain: Extra-axial spaces: In the left middle cranial fossa there is a cystic mass, likely a benign arachnoi d cyst versus other etiology. Ventricular system: Within normal limits Cerebral parenchyma: No acute intraparenchymal hemorrhage or mass effect. The gill-white junction is well differentiated. Cystic mass in the right parietal/occipital lobe with surrounding vasogenic e clint is reidentified similar to prior exam. Cerebellum: Unremarkable. Mass effect: No evidence of midline shift. Intracranial vasculature: unremarkable Soft tissues: Normal. Calvarium/osseous structures: No depressed skull fracture. Paranasal sinuses and mastoid air cells: Mild scattered paranasal sinus disease. Visualized orbits: Orbital contents are intact. IMPRESSION: Cystic mass, right parietal/occipital lobes. 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
[2023-11-05] MEDS ORDERED: NALOXONE 0.4 MG/ML 1 ML VIAL IV PRN (15:24)
[2023-11-05] MEDS: ACETAMINOPHEN TAB 325 MG TAB PO PRN (19:24)
[2023-11-05] MEDS ORDERED: ALBUTEROL HFA INHALER INHALATION PRN (20:56)
[2023-11-05] MEDS: dexAMETHasone 4 MG TAB PO SCH (21:07)
[2023-11-05] MEDS: hydrALAZINE HCL 20 MG/ML 1 ML VIAL IVP STA (21:08)
[2023-11-06 00:38] VITALS: PULSE 77
[2023-11-06] MEDS: oxyCODONE-APAP 5-325MG 1 EACH TAB PO STA (03:24)
[2023-11-06 07:43] VITALS: BP 173/71; RESP 16; TEMP 98
[2023-11-06] MEDS: amLODIPine 5 MG TAB PO SCH (07:50)
[2023-11-06] MEDS: PANTOPRAZOLE 40 MG TABLET PO SCH (07:50)
[2023-11-06] MEDS: EZETIMIBE 10 MG TAB PO SCH (07:50)
[2023-11-06] MEDS: VALSARTAN 160 MG TAB PO SCH (07:51)
[2023-11-06] MEDS: hydroCHLOROthiazide 12.5 MG CAP PO SCH (07:51)
[2023-11-06] MEDS: SYMBICORT 80-4.5 MCG INHALER INHALATION SCH (09:54)
[2023-11-06] MEDS: BUTALB/APAP/CAFF 50-325-40MG TAB PO STA (11:59)
--- NOTE | 2023-11-06 13:12 | P.HPIM ---
History of Present Illness H&P Date: 11/06/23 This is a pleasant 78-year-old male who presented to the emergency department via EMS with son at the bedside who has significant past medical history of esophageal cancer. Patient per son approximately 2 weeks ago had been told they found a lesion on the brain and follows with the cancer specialist outpatient. Patient was initially scheduled to undergo radiation therapy although family has discussed further and did not want to pursue any further treatment as he is progressively becoming more weak having daily continuous debilitating headaches and they want to go to hospice house. Family have discussed and met and will be going to hospice house today. Patient was continued on dexamethasone oral with no significant improvements. Patient follows with Dr. Aguillon in the outpatient setting with past medical history of asthma, esophageal cancer, DVT, GERD, hyperlipidemia, hypertension, obesity. Patient did have a CT of the brain in the ER showing a cystic mass of the right parietal occipital lobes as previously seen on MRI and CT of the brain earlier this year. CODE STATUS was a lso addressed and patient is no code. REVIEW OF SYSTEMS: CONSTITUTIONAL: No fever, no malaise, no fatigue. HEENT: Reports of visual problems and getting progressively worse, denies hearing problems. Denied any sore throat. Reports persistent headaches daily continuously CARDIOVASCULAR: No chest pain, orthopnea, PND, no palpitations, no syncope. PULMONARY: No shortness of breath, no cough, no hemoptysis. GASTROINTESTINAL: No diarrhea, no nausea, no vomiting, no abdominal pain. NEUROLOGICAL: No headaches, no weakness, no numbness. HEMATOLOGICAL: Denies any bleeding or petechiae. GENITOURINARY: Denies any burning micturition, frequency, or urgency. MUSCULOSKELETAL/RHEUMATOLOGICAL: Denies any joint pain, swelling, or any muscle pain. Reports generalized weakness ENDOCRINE: Denies any polyuria or polydipsia. The rest of the 14-point review of systems is negative. PHYSICAL EXAMINATION: GENERAL: The patient is alert and oriented x2, not in any acute distress. Elderly appearing, obese well developed, well nourished. HEENT: Pupils are round and equally reacting to light. EOMI. No scleral icterus. No conjunctival pallor. Normocephalic, atraumatic. No pharyngeal erythema. No thyromegaly. CARDIOVASCULAR: S1 and S2 muffled PULMONARY: Chest is clear to auscultation, no wheezing or crackles. ABDOMEN: Soft, obese. Nontender, nondistended, normoactive bowel sounds. No palpable organomegaly. MUSCULOSKELETAL: No joint swelling or deformity. EXTREMITIES: No cyanosis, clubbing, or pedal edema. NEUROLOGICAL: Gross neurological examination did not reveal any focal deficits. Diffusely weak SKIN: No rashes. Assessment: Esophageal cancer history with metastasis to the brain with vasogenic edema Hypertension history History of asthma, not in exacerbation Continuous headaches, likely secondary to above Obesity with a BMI of 34.2 GI prophylaxis DVT prophylaxis No code Plan: Patient was brought to the hospital by family via EMS as patient has been becoming progressively more weak, more frequent falls and continuous headaches. They have contacted [facility] and would like to go to the hospice house Case management following making arrangements for discharge planning today to hospice house as patient has been accepted Son at the bedside with questions and concerns that were answered. Patient was recently diagnosed with a lesion on the brain and has history of esophageal cancer with metastasis and they do not want to seek any further treatment. They would like to go to hospice with comfort measures only. Overall prognosis guarded The impression and plan of care has been dictated by Renée Tineo, Nurse Practitioner as directed. Dr. Jay MD I have performed a history and examination and MDM of this patient, discussed th e same with the dictator, and agree with the dictator's assessment and plan as written ,documented as a scribe. Based on total visit time, I have performed more than 50% of the visit. Past Medical History Past Medical History: Asthma, Cancer, Deep Vein Thrombosis (DVT), GERD/Reflux, Hyperlipidemia, Hypertension Additional Past Medical History / Comment(s): esophageal Ca, infusion treatment 10/15/23 every 4-6 weeks, radiation finished History of Any Multi-Drug Resistant Organisms: None Reported Past Surgical History: Hernia Repair, Joint Replacement, Orthopedic Surgery Additional Past Surgical History / Comment(s): partial knee replacement egd, feeding tube -REMOVED Past Anesthesia/Blood Transfusion Reactions: No Reported Reaction Additional Past Anesthesia/Blood Transfusion Reaction / Comment(s): no blood transfusion Past Psychological History: No Psychological Hx Reported Smoking Status: Former smoker Past Alcohol Use History: None Reported Additional Past Alcohol Use History / Comment(s): quit 1983 Past Drug Use History: None Reported - Past Family History Mother Family Medical History: No Reported History Medications and Allergies Home Medications Medication Instructions Recorded Confirmed Type Albuterol Sulfate [Ventolin HFA] 2 puff INHALATION RT-QID PRN 07/01/23 11/05/23 History Ezetimibe [Zetia] 10 mg PO DAILY 07/01/23 11/05/23 History Fluticasone Propion/Salmeterol 1 puff INHALATION RT-DAILY 07/01/23 11/05/23 History [Wixela 100-50 Inhub] Omeprazole 20 mg PO DAILY 07/01/23 11/05/23 History Valsartan/Hydrochlorothiazide 1 tab PO DAILY 07/01/23 11/05/23 History [Valsartan-Hctz 160-12.5 mg Tab] amLODIPine [Norvasc] 5 mg PO DAILY 07/01/23 11/05/23 History Acetaminophen Tab [Tylenol] 650 mg PO Q6HR PRN tab 11/06/23 Rx dexAMETHasone ORAL [Hexadrol] 4 mg PO BID tab 11/06/23 Rx Allergies Allergy/AdvReac Type Severity Reaction Status Date / Time No Known Allergies Allergy Verified 11/05/23 15:35 Physical Exam Vitals: Vital Signs Temp Pulse Pulse Resp BP BP Pulse Ox 11/06/23 07:26 98.0 F 77 16 173/71 97 11/06/23 00:33 97.6 F 77 17 178/76 95 11/05/23 19:47 98.5 F 75 17 179/73 96 11/05/23 19:29 98.2 F 87 16 170/73 96 11/05/23 15:00 70 18 160/68 96 11/05/23 12:20 97.8 F 72 16 152/69 98 Intake and Output 11/05/23 11/06/23 11/06/23 22:59 06:59 14:59 Output Total 1000 Balance -1000 Output: Urine 1000 Other: Weight 102.058 kg Results CBC & Chem 7: 11/05/23 13:38 11/05/23 13:38 Labs: Abnormal Lab Results - Last 24 Hours (Table) 11/05/23 11/05/23 Range/Units 13:38 13:38 WBC 15.2 H (3.8-10.6) k/uL Hgb 12.9 L (13.0-17.5) gm/dL Neutrophils # 14.1 H (1.3-7.7) k/uL Lymphocytes # 0.3 L (1.0-4.8) k/uL Sodium 130 L (137-145) mmol/L BUN 55 H (9-20) mg/dL Glucose 109 H (74-99) mg/dL Thrombosis Risk Factor Assmnt - Choose All That Apply Any of the Below Risk Factors Present?: Yes Each Factor Represents 1 point: Obesity (BMI >25) Each Risk Factor Represents 2 Points: Malignancy Each Risk Factor Represents 3 Points: Age 75 years or older Other congenital or acquired thrombophilia - If yes, enter type in comment: No Thrombosis Risk Factor Assessment Total Risk Factor Score: 6 Thrombosis Risk Factor Assessment Level: High Risk Assessment and Plan Time with Patient: Greater than 30
--- NOTE | 2023-11-06 14:09 | P.DS ---
Providers Date of admission: 11/05/23 15:24 Expected date of discharge: 11/06/23 Attending physician: Sebastian Helms Primary care physician: Nicko Aguillon Hospital Course: Final diagnosis Esophageal cancer history with metastasis to the brain with vasogenic edema Hypertension history History of asthma, not in exacerbation Continuous headaches, likely secondary to above Obesity with a BMI of 34.2 GI prophylaxis DVT prophylaxis No code Discharge disposition Patient is being discharged in a stable condition with guarded prognosis to [facility] with comfort measures. Patient follows with Dr. Aguillon in the outpatient setting. Total time taken is greater than 35 minutes. Hospital course This is a 78-year-old male who was recently admitted with progressive weakness and falls with visual disturbances and constant headache. Patient was recently found to have lesions on the brain with concerns of metastasis with history of esophageal cancer. Patient was recently hospitalized and evaluated by oncology placed on dexamethasone and scheduled to undergo radiation although family has decided they want to go comfort measures at hospice house. Patient's family has contacted [facility] and arranging for discharge planning there today. Family does not want to pursue any further treatments at this time. Son at the bedside with questions and concerns that were answered. Currently no reports of chest pain, shortness of breath, or palpitations. Patient is afebrile. No reports of nausea or vomiting and patient is tolerating diet. Patient reports not much of an appetite and has a continuous headache almost from the moment that he wakes up that persists. Overall prognosis is poor and guarded. Patient will be going to [facility] today. Overall poor prognosis. Physical exam: Gen: This is a 78-year-old male who is awake, alert and oriented x 2, well- developed, elderly appearing, obese HEENT: Head is atraumatic, normocephalic. Pupils equal, round. Sclerae is anicteric. NECK: Supple. No JVD. No lymphadenopathy. No thyromegaly. LUNGS: Clear to auscultation. No wheezes or rhonchi. No intercostal retractions. HEART: Regular rate and rhythm. No murmur. ABDOMEN: Soft. Obese. Bowel sounds are present. No masses. No tenderness. EXTREMITIES: No pedal edema. No calf tenderness. NEUROLOGICAL: Patient is awake, alert and oriented x3. Cranial nerves 2 through 12 are grossly intact. Please refer to medication reconciliation sheet for a list of medications. The impression and plan of care has been dictated by Renée Tineo, Nurse Practitioner as directed. Dr. Jay MD I have performed a history and examination and MDM of this patient, discussed the same with the dictator, and agree with the dictator's assessment and plan as written ,documented as a scribe. Based on total visit time, I have performed more than 50% of the visit. Patient Condition at Discharge: Fair Plan - Discharge Summary New Discharge Prescriptions: New dexAMETHasone ORAL [Hexadrol] 4 mg PO BID tab Acetaminophen Tab [Tylenol] 650 mg PO Q6HR PRN tab PRN Reason: Fever And/ Or Pain Continue amLODIPine [Norvasc] 5 mg PO DAILY Ezetimibe [Zetia] 10 mg PO DAILY Omeprazole 20 mg PO DAILY Albuterol Sulfate [Ventolin HFA] 2 puff INHALATION RT-QID PRN PRN Reason: Shortness Of Breath Valsartan/Hydrochlorothiazide [Valsartan-Hctz 160-12.5 mg Tab] 1 tab PO DAILY Fluticasone Propion/Salmeterol [Wixela 100-50 Inhub] 1 puff INHALATION RT- DAILY Discontinued dexAMETHasone [Decadron] See Taper PO DIRECTED Discharge Medication List Albuterol Sulfate [Ventolin HFA] 2 puff INHALATION RT-QID PRN 07/01/23 [History] Ezetimibe [Zetia] 10 mg PO DAILY 07/01/23 [History] Fluticasone Propion/Salmeterol [Wixela 100-50 Inhub] 1 puff INHALATION RT-DAILY 07/01/23 [History] Omeprazole 20 mg PO DAILY 07/01/23 [History] Valsartan/Hydrochlorothiazide [Valsartan-Hctz 160-12.5 mg Tab] 1 tab PO DAILY 07/01/23 [History] amLODIPine [Norvasc] 5 mg PO DAILY 07/01/23 [History] Acetaminophen Tab [Tylenol] 650 mg PO Q6HR PRN tab 11/06/23 [Rx] dexAMETHasone ORAL [Hexadrol] 4 mg PO BID tab 11/06/23 [Rx] Follow up Appointment(s)/Referral(s): [facility] [REFERRING] - Nicko Aguillon DO [Primary Care Provider] - 1-2 days Activity/Diet/Wound Care/Special Instructions: Patient is being discharged to go to hospice house Discharge Disposition: OTHER INSTITUTION NOT DEFINED
== END 2023-11-06 13:17 | disposition hospice, inpatient (51) | DRG 81 ==
LOC: EC 12:10 → 5NMEDONC 15:24
PROVIDERS: ADMIT Hospitalist; ATTEND Hospitalist
DX: G93.6 Cerebral edema (principal); C79.31 Secondary malignant neoplasm of brain; C15.9 Malignant neoplasm of esophagus, unspecified; I10 Essential (primary) hypertension; J45.909 Unspecified asthma, uncomplicated; E66.9 Obesity, unspecified; Z68.34 Body mass index [BMI] 34.0-34.9, adult; R29.6 Repeated falls; E78.5 Hyperlipidemia, unspecified; G44.89 Other headache syndrome; H53.9 Unspecified visual disturbance; Z66 Do not resuscitate; Z96.659 Presence of unspecified artificial knee joint; Z51.5 Encounter for palliative care; Z91.81 History of falling; Z92.3 Personal history of irradiation; Z87.891 Personal history of nicotine dependence; Z79.899 Other long term (current) drug therapy
CPT/HCPCS: 36415; 51702; 51798; 70450; 80048; 85025; 94640; 96361; 96374; 96375; 99285